=== PATIENT | male | born 1955 | race Two or more races ===

== ENCOUNTER 2023-09-19 02:02 | Inpatient (IN) | payer OTHER ==
[2023-09-19] VITALS (27 sets, daily range): BP systolic 96–160; BP diastolic 58–94; PULSE 56–76; RESP 15–21; TEMP 96–98.5; O2SAT 90–97
[~2023-09-19] VITALS: Ht 177.8 cm; Wt 88.0 kg
[~2023-09-19 02:02] MED LIST: PRED20TA2 PO
[2023-09-19] MEDS ORDERED: NITROGLYCERIN 50MG/250ML 250 ML IV ONE (02:15)
[2023-09-19] MEDS: FUROSEMIDE 100 MG/10ML VIAL IV ONE (02:29)
[2023-09-19 02:50] LABS: Albumin 3.7 g/dL (3.2-4.8); Alkaline Phosphatase 89 U/L (46-116); Anion Gap 4 (5-15); Aspartate Aminotransferase 11 U/L (13-40); BUN/Creatinine Ratio 15.1 (10.0-20.0); Blood Urea Nitrogen 19 mg/dL (9-23); Calcium 8.8 mg/dL (8.7-10.4); Carbon Dioxide 26 mmol/L (20-30); Chloride 111 mmol/L (98-107); Glucose 103 mg/dL (74-106); Potassium 3.8 mmol/L (3.5-5.1); Sodium 141 mmol/L (136-145)
[2023-09-19 02:51] LABS: Bilirubin, Total 0.5 mg/dL (0.2-1.0); Total Protein 6.4 g/dL (5.7-8.2)
[2023-09-19 03:02] LABS: Alanine Aminotransferase < 9 U/L (7-40)
[2023-09-19 03:04] LABS: Basophils # (auto) 0.1 10 ^3/uL (0-0.2); Basophils % (auto) 0.7 % (0.0-2.0); Eosinophils # (auto) 0.2 10 ^3/uL (0-0.8); Eosinophils % (auto) 2.6 % (0.0-7.0); Hematocrit 46.3 % (41.0-53.0); Hemoglobin 15.2 g/dL (13.5-17.5); Lymphocytes # (auto) 1.3 10 ^3/uL (0.4-5.4); Lymphocytes % (auto) 17.9 % (10.0-50.0); Mean Corpuscular Hemoglobin 30.4 pg (28.0-32.0); Mean Corpuscular Volume 92.2 fL (80.0-100.0); Monocytes # (auto) 0.6 10 ^3/uL (0-1.3); Monocytes % (auto) 8.7 % (0.0-12.0); Neutrophils # (auto) 5.2 10 ^3/uL (1.6-8.6); Neutrophils % (auto) 70.1 % (37.0-80.0); Red Blood Cells 5.02 10^6/uL (4.5-5.90); Red Cell Distribution Width 15.6 % (11.8-14.3); White Blood Cell 7.4 10^3/uL (4.4-10.8)
[2023-09-19 03:17] LABS: INR 1.19 (0.9-1.15); Partial Thromboplastin Time 25.7 SEC (24.5-34.5); Prothrombin Time 12.5 sec (9.3-11.8)
[2023-09-19 03:32] LABS: Urine Bacteria None Seen /hpf (None Seen)
[2023-09-19] MEDS: cefTRIAXone 1GM/50ML D5W 50 ML IV ONE (03:35)
[2023-09-19 03:37] LABS: Base Excess -2.1 mmol/L (-2.0-2.0)
[2023-09-19] MEDS: HYDROcodone-ACET 5/325MG TAB PO ONE (03:37)
[2023-09-19 03:44] LABS: Urine Blood Negative /uL (Negative); Urine Clarity Clear (Clear); Urine Color Colorless (Yellow); Urine Protein, UAD Negative (Negative); Urine Specific Gravity 1.009 (1.001-1.035); Urine Urobilinogen Normal (Negative); Urine WBC <1 /hpf (0 - 3); Urine pH 5.5 (5.0-9.0)
[2023-09-19] MEDS: AZITHROMYCIN 500MG/ 250ML 250 ML IV ONE (04:04)
[2023-09-19] MEDS: methylPREDNISolone SOD SUCC 125 MG/2 ML VL IV ONE (04:05)
[2023-09-19 04:58] LABS: COVID19 ANTIGEN SOFIA FIA NEGATIVE (NEGATIVE); Rapid Influenza A Negative (Negative); Rapid Influenza B Negative (Negative)
[2023-09-19] MEDS ORDERED: MORPHINE SULFATE INJ 2 MG/ml SYRG IV PRN (05:45)
[2023-09-19] MEDS ORDERED: ONDANSETRON HCL 4 MG/2 ML VIAL IV PRN ×2 (05:45)
[2023-09-19] MEDS ORDERED: NITROGLYCERIN 0.4 MG SL TAB SL PRN ×2 (05:45)
[2023-09-19] MEDS ORDERED: TEMAZEPAM 15 MG CAP PO PRN (05:45)
[2023-09-19] MEDS ORDERED: DOCUSATE SOD 100 MG CAP PO PRN (05:45)
[2023-09-19] MEDS: SODIUM CHLOR 0.9% PF (SALINE LOCK) 10ML VIAL/SYR IV SCH (06:25)
[2023-09-19] MEDS: ALBUTEROL SULF 2.5 MG/0.5ML(0.5%) NEB SOLN NEB SCH (06:27)
[2023-09-19] MEDS: IPRATROPIUM BROM 0.5 MG/2.5ML INH SOL NEB SCH (06:27)
[2023-09-19] MEDS ORDERED: MORPHINE SULFATE 4 MG/ML SYR/VIAL IV PRN (06:30)
[2023-09-19] MEDS: HYDROcodone-ACET 5/325MG TAB PO PRN (07:50)
[2023-09-19] MEDS: IOHEXOL 350 MG/ML 100ML IJ ONE (08:44)
[2023-09-19] MEDS: FAMOTIDINE (10MG/ML) 2ML VL IV SCH (09:47)
[2023-09-19] MEDS: AMIODARONE HCL 200 MG TAB PO SCH (09:47)
[2023-09-19] MEDS: FUROSEMIDE 40 MG/4 ML VIAL IV SCH (09:47)
[2023-09-19] MEDS: CARVEDILOL 12.5 MG TAB PO SCH (09:47)
[2023-09-19] MEDS: ENOXAPARIN SOD 40 MG/0.4 ML SYRINGE SC SCH (09:48)
[2023-09-19] MEDS: SACUBITRIL-VALSARTAN 24mg/26mg TAB PO SCH (09:48)
[2023-09-19] MEDS ORDERED: CARV25TA55 PO (11:35)
[2023-09-19] MEDS ORDERED: ATOR20TA50 PO (11:35)
[2023-09-19] MEDS ORDERED: FUR20T PO (11:35)
[2023-09-19] MEDS ORDERED: ALBU108A5 INH (11:35)
[2023-09-19] MEDS ORDERED: APIX5TAB PO (11:35)
[2023-09-19] MEDS ORDERED: SACU1TAB PO (11:35)
[2023-09-19] MEDS ORDERED: AMIO100T3 PO (11:35)
[2023-09-19] MEDS ORDERED: CHOL20007 PO (11:35)
[2023-09-19] MEDS: methylPREDNISolone SOD SUCC 125 MG/2 ML VL IV SCH (14:14)
[2023-09-19] MEDS: ATORVASTATIN 20 MG TAB PO SCH (22:03)
[2023-09-19] MEDS: BUDESONIDE (INHALATION) 0.5 MG/2 ML NEB NEB SCH (22:31)
[2023-09-20] VITALS (36 sets, daily range): BP systolic 84–110; BP diastolic 49–71; PULSE 58–77; RESP 11–22; TEMP 97–99; O2SAT 89–98
[2023-09-20] MEDS: cefTRIAXone 1GM/50ML D5W 50 ML IV SCH (02:52)
[2023-09-20] MEDS: AZITHROMYCIN 500MG/ 250ML 250 ML IV SCH (04:09)
[2023-09-20 05:41] LABS: Basophils # (auto) 0 10 ^3/uL (0-0.2); Basophils % (auto) 0.1 % (0.0-2.0); Eosinophils # (auto) 0 10 ^3/uL (0-0.8); Hematocrit 45.9 % (41.0-53.0); Hemoglobin 15.2 g/dL (13.5-17.5); Lymphocytes # (auto) 0.6 10 ^3/uL (0.4-5.4); Lymphocytes % (auto) 6.2 % (10.0-50.0); Mean Corpuscular Hemoglobin 30.4 pg (28.0-32.0); Mean Corpuscular Hgb Conc. 33.1 g/dL (32.0-36.0); Mean Corpuscular Volume 91.9 fL (80.0-100.0); Monocytes # (auto) 0.1 10 ^3/uL (0-1.3); Monocytes % (auto) 1.4 % (0.0-12.0); Neutrophils # (auto) 8.6 10 ^3/uL (1.6-8.6); Neutrophils % (auto) 92.3 % (37.0-80.0); Red Cell Distribution Width 15.5 % (11.8-14.3); White Blood Cell 9.3 10^3/uL (4.4-10.8)
[2023-09-20] MEDS ORDERED: methylPREDNISolone SOD SUCC 125 MG/2 ML VL IV SCH (06:00)
[2023-09-20 06:06] LABS: Albumin 3.7 g/dL (3.2-4.8); Alkaline Phosphatase 95 U/L (46-116); Anion Gap 8 (5-15); Aspartate Aminotransferase < 8 U/L (13-40); BUN/Creatinine Ratio 19.7 (10.0-20.0); Bilirubin, Total 0.4 mg/dL (0.2-1.0); Blood Urea Nitrogen 25 mg/dL (9-23); Calcium 9.2 mg/dL (8.7-10.4); Carbon Dioxide 24 mmol/L (20-30); Chloride 105 mmol/L (98-107); Glucose 144 mg/dL (74-106); Potassium 3.7 mmol/L (3.5-5.1); Sodium 137 mmol/L (136-145)
[2023-09-20 06:07] LABS: Total Protein 6.4 g/dL (5.7-8.2)
[2023-09-20 06:22] LABS: Alanine Aminotransferase < 9 U/L (7-40)
[2023-09-20] MEDS: HYDROcodone-ACET 10/325MG TAB PO PRN (16:20)
[2023-09-20] MEDS: ZOLPIDEM TARTRATE 5 MG TAB PO PRN (21:54)
[2023-09-21] VITALS (31 sets, daily range): BP systolic 78–117; BP diastolic 51–73; PULSE 63–86; RESP 12–29; TEMP 97.6–97.8; O2SAT 90–100
[2023-09-21] MEDS: POTASSIUM CHL 20 Meq TABLET PO ONE (10:12)
[2023-09-21 20:07] LABS: Alanine Aminotransferase 55 U/L (7-40); Alkaline Phosphatase 121 U/L (46-116); Anion Gap 5 (5-15); Aspartate Aminotransferase 53 U/L (13-40); Bilirubin, Total 0.7 mg/dL (0.2-1.0); Blood Urea Nitrogen 25 mg/dL (9-23); Calcium 9.7 mg/dL (8.5-10.1); Carbon Dioxide 27 mmol/L (20-30); Chloride 104 mmol/L (98-107); Glucose 151 mg/dL (74-106); Sodium 136 mmol/L (136-145); Total Protein 6.5 g/dL (5.7-8.2)
[2023-09-21] MEDS: SACUBITRIL-VALSARTAN 24mg/26mg TAB PO SCH (21:49)
[2023-09-21] MEDS: CARVEDILOL 12.5 MG TAB PO SCH (21:50)
[2023-09-22] VITALS (19 sets, daily range): BP systolic 108–121; BP diastolic 62–80; PULSE 62–92; RESP 14–24; TEMP 97.7–98.4; O2SAT 90–98
[2023-09-22 05:36] LABS: Basophils # (auto) 0 10 ^3/uL (0-0.2); Basophils % (auto) 0.1 % (0.0-2.0); Eosinophils # (auto) 0 10 ^3/uL (0-0.8); Hematocrit 45.5 % (41.0-53.0); Hemoglobin 15.3 g/dL (13.5-17.5); Lymphocytes # (auto) 0.4 10 ^3/uL (0.4-5.4); Lymphocytes % (auto) 3.4 % (10.0-50.0); Mean Corpuscular Hemoglobin 30.7 pg (28.0-32.0); Mean Corpuscular Hgb Conc. 33.6 g/dL (32.0-36.0); Mean Corpuscular Volume 91.5 fL (80.0-100.0); Monocytes # (auto) 0.4 10 ^3/uL (0-1.3); Neutrophils # (auto) 11.2 10 ^3/uL (1.6-8.6); Neutrophils % (auto) 93.5 % (37.0-80.0); Red Blood Cells 4.98 10^6/uL (4.5-5.90); Red Cell Distribution Width 15.5 % (11.8-14.3)
[2023-09-22 05:48] LABS: Calcium 9.4 mg/dL (8.7-10.4); Chloride 103 mmol/L (98-107); Potassium 4.1 mmol/L (3.5-5.1); Sodium 136 mmol/L (136-145)
[2023-09-22 05:49] LABS: Anion Gap 7 (5-15); Carbon Dioxide 26 mmol/L (20-30)
[2023-09-22 05:54] LABS: BUN/Creatinine Ratio 23.6 (10.0-20.0); Blood Urea Nitrogen 25 mg/dL (9-23); Glucose 145 mg/dL (74-106)
[2023-09-22 05:55] LABS: Magnesium 2.3 mg/dL (1.6-2.6)
[2023-09-23] VITALS (46 sets, daily range): BP systolic 99–130; BP diastolic 63–79; PULSE 57–79; RESP 12–27; TEMP 97.4–98.4; O2SAT 84–96
[2023-09-23 08:53] LABS: Base Excess 5.1 mmol/L (-2.0-2.0)
[2023-09-23 11:46] LABS: Basophils # (auto) 0 10 ^3/uL (0-0.2); Eosinophils # (auto) 0 10 ^3/uL (0-0.8); Hemoglobin 16.3 g/dL (13.5-17.5); Lymphocytes # (auto) 0.2 10 ^3/uL (0.4-5.4); Lymphocytes % (auto) 1.7 % (10.0-50.0); Mean Corpuscular Hemoglobin 30.3 pg (28.0-32.0); Mean Corpuscular Hgb Conc. 33.3 g/dL (32.0-36.0); Mean Corpuscular Volume 91.1 fL (80.0-100.0); Monocytes # (auto) 0.7 10 ^3/uL (0-1.3); Monocytes % (auto) 4.8 % (0.0-12.0); Neutrophils % (auto) 93.5 % (37.0-80.0); Red Blood Cells 5.39 10^6/uL (4.5-5.90); Red Cell Distribution Width 15.3 % (11.8-14.3); White Blood Cell 14.9 10^3/uL (4.4-10.8)
[2023-09-23 12:00] LABS: Chloride 103 mmol/L (98-107); Potassium 3.8 mmol/L (3.5-5.1); Sodium 135 mmol/L (136-145)
[2023-09-23 12:01] LABS: Anion Gap 5 (5-15); Carbon Dioxide 27 mmol/L (20-30)
[2023-09-23 12:02] LABS: Calcium 9.2 mg/dL (8.5-10.1)
[2023-09-23 12:07] LABS: BUN/Creatinine Ratio 20.6 (10.0-20.0); Blood Urea Nitrogen 22 mg/dL (9-23); Glucose 177 mg/dL (74-106)
[2023-09-23] MEDS: LORazepam 2MG/ML-1ML VIAL IV PRN (12:39)
[2023-09-24] VITALS (32 sets, daily range): BP systolic 105–156; BP diastolic 56–81; PULSE 54–89; RESP 12–26; TEMP 97.1–98.4; O2SAT 85–97
[2023-09-24 05:41] LABS: Basophils # (auto) 0 10 ^3/uL (0-0.2); Basophils % (auto) 0.1 % (0.0-2.0); Eosinophils # (auto) 0 10 ^3/uL (0-0.8); Hemoglobin 15.7 g/dL (13.5-17.5); Lymphocytes # (auto) 0.3 10 ^3/uL (0.4-5.4); Lymphocytes % (auto) 2.5 % (10.0-50.0); Mean Corpuscular Hemoglobin 30.6 pg (28.0-32.0); Mean Corpuscular Hgb Conc. 33.4 g/dL (32.0-36.0); Mean Corpuscular Volume 91.7 fL (80.0-100.0); Monocytes # (auto) 0.5 10 ^3/uL (0-1.3); Monocytes % (auto) 4.1 % (0.0-12.0); Neutrophils # (auto) 10.8 10 ^3/uL (1.6-8.6); Neutrophils % (auto) 93.3 % (37.0-80.0); Red Blood Cells 5.13 10^6/uL (4.5-5.90); Red Cell Distribution Width 14.8 % (11.8-14.3); White Blood Cell 11.5 10^3/uL (4.4-10.8)
[2023-09-24 05:48] LABS: Chloride 100 mmol/L (98-107); Potassium 4.2 mmol/L (3.5-5.1); Sodium 135 mmol/L (136-145)
[2023-09-24 05:49] LABS: Anion Gap 5 (5-15); Calcium 9.2 mg/dL (8.7-10.4); Carbon Dioxide 30 mmol/L (20-30)
[2023-09-24 05:54] LABS: Blood Urea Nitrogen 26 mg/dL (9-23); Glucose 126 mg/dL (74-106)
[2023-09-25] VITALS (33 sets, daily range): BP systolic 107–142; BP diastolic 54–80; PULSE 59–95; RESP 12–22; TEMP 97.3–98.6; O2SAT 86–94
[2023-09-25 08:30] LABS: Basophils # (auto) 0 10 ^3/uL (0-0.2); Basophils % (auto) 0.1 % (0.0-2.0); Eosinophils # (auto) 0 10 ^3/uL (0-0.8); Hematocrit 47.9 % (41.0-53.0); Hemoglobin 16.1 g/dL (13.5-17.5); Lymphocytes # (auto) 0.3 10 ^3/uL (0.4-5.4); Lymphocytes % (auto) 2.1 % (10.0-50.0); Mean Corpuscular Hemoglobin 30.5 pg (28.0-32.0); Mean Corpuscular Hgb Conc. 33.6 g/dL (32.0-36.0); Mean Corpuscular Volume 90.8 fL (80.0-100.0); Monocytes # (auto) 0.6 10 ^3/uL (0-1.3); Neutrophils # (auto) 14.3 10 ^3/uL (1.6-8.6); Neutrophils % (auto) 93.8 % (37.0-80.0); Red Blood Cells 5.27 10^6/uL (4.5-5.90); Red Cell Distribution Width 14.6 % (11.8-14.3); White Blood Cell 15.2 10^3/uL (4.4-10.8)
[2023-09-25 08:40] LABS: Chloride 99 mmol/L (98-107); Potassium 4.2 mmol/L (3.5-5.1); Sodium 133 mmol/L (136-145)
[2023-09-25 08:41] LABS: Anion Gap 3 (5-15); Carbon Dioxide 31 mmol/L (20-30)
[2023-09-25 08:42] LABS: Calcium 9.2 mg/dL (8.5-10.1)
[2023-09-25 08:46] LABS: Glucose 108 mg/dL (74-106)
[2023-09-25 08:47] LABS: BUN/Creatinine Ratio 22.7 (10.0-20.0); Blood Urea Nitrogen 25 mg/dL (9-23)
[2023-09-25] MEDS ORDERED: ACETYLCYSTEINE 20%(200MG/ML) SOL 4ML NEB SCH (12:00)
[2023-09-25] MEDS: methylPREDNISolone SOD SUCC 125 MG/2 ML VL IV SCH (14:52)
[2023-09-25] MEDS: ACETYLCYSTEINE 20%(200MG/ML) SOL 4ML NEB SCH (14:54)
[2023-09-26] VITALS (35 sets, daily range): BP systolic 109–148; BP diastolic 48–91; PULSE 61–160; RESP 13–33; TEMP 97.7–98.2; O2SAT 86–94
[2023-09-26 05:12] LABS: Basophils # (auto) 0 10 ^3/uL (0-0.2); Basophils % (auto) 0.1 % (0.0-2.0); Eosinophils # (auto) 0 10 ^3/uL (0-0.8); Lymphocytes # (auto) 0.3 10 ^3/uL (0.4-5.4); Lymphocytes % (auto) 2.1 % (10.0-50.0); Mean Corpuscular Hemoglobin 30.1 pg (28.0-32.0); Mean Corpuscular Hgb Conc. 33.3 g/dL (32.0-36.0); Mean Corpuscular Volume 90.5 fL (80.0-100.0); Monocytes # (auto) 0.5 10 ^3/uL (0-1.3); Monocytes % (auto) 3.7 % (0.0-12.0); Neutrophils # (auto) 12.6 10 ^3/uL (1.6-8.6); Neutrophils % (auto) 94.1 % (37.0-80.0); Red Blood Cells 5.31 10^6/uL (4.5-5.90); Red Cell Distribution Width 14.9 % (11.8-14.3); White Blood Cell 13.4 10^3/uL (4.4-10.8)
[2023-09-26 05:23] LABS: Chloride 99 mmol/L (98-107); Sodium 134 mmol/L (136-145)
[2023-09-26 05:24] LABS: Anion Gap 3 (5-15); Calcium 9.2 mg/dL (8.7-10.4); Carbon Dioxide 32 mmol/L (20-30)
[2023-09-26 05:29] LABS: BUN/Creatinine Ratio 25.3 (10.0-20.0); Blood Urea Nitrogen 25 mg/dL (9-23); Glucose 164 mg/dL (74-106)
[2023-09-26] MEDS: MICAFUNGIN SODIUM 100 MG in SODIUM CHL 0.9% 100 ML IV SCH (09:58)
[2023-09-26] MEDS: FUROSEMIDE 40 MG/4 ML VIAL IV SCH (22:02)
[2023-09-27] VITALS (27 sets, daily range): BP systolic 103–136; BP diastolic 43–85; PULSE 53–79; RESP 13–24; TEMP 97.6–98.9; O2SAT 70–96
[2023-09-27 05:55] LABS: Basophils # (auto) 0 10 ^3/uL (0-0.2); Basophils % (auto) 0.3 % (0.0-2.0); Eosinophils # (auto) 0 10 ^3/uL (0-0.8); Hematocrit 48.2 % (41.0-53.0); Hemoglobin 16.3 g/dL (13.5-17.5); Lymphocytes # (auto) 0.3 10 ^3/uL (0.4-5.4); Lymphocytes % (auto) 2.6 % (10.0-50.0); Mean Corpuscular Hemoglobin 30.5 pg (28.0-32.0); Mean Corpuscular Hgb Conc. 33.8 g/dL (32.0-36.0); Mean Corpuscular Volume 90.3 fL (80.0-100.0); Monocytes # (auto) 0.8 10 ^3/uL (0-1.3); Monocytes % (auto) 5.9 % (0.0-12.0); Neutrophils # (auto) 11.7 10 ^3/uL (1.6-8.6); Neutrophils % (auto) 91.2 % (37.0-80.0); Red Blood Cells 5.34 10^6/uL (4.5-5.90); Red Cell Distribution Width 14.7 % (11.8-14.3); White Blood Cell 12.9 10^3/uL (4.4-10.8)
[2023-09-27 06:13] LABS: Anion Gap 6 (5-15); Carbon Dioxide 32 mmol/L (20-30); Chloride 99 mmol/L (98-107); Potassium 3.8 mmol/L (3.5-5.1); Sodium 137 mmol/L (136-145)
[2023-09-27 06:18] LABS: Glucose 114 mg/dL (74-106)
[2023-09-27 06:19] LABS: BUN/Creatinine Ratio 29.6 (10.0-20.0); Blood Urea Nitrogen 29 mg/dL (9-23)
[2023-09-27 13:07] LABS: QuantiFERON-TB Gold Plus Negative (Negative)
[2023-09-28] VITALS (27 sets, daily range): BP systolic 96–126; BP diastolic 62–79; PULSE 62–96; RESP 14–24; TEMP 97.6–97.9; O2SAT 69–96
[2023-09-28 05:45] LABS: Basophils # (auto) 0 10 ^3/uL (0-0.2); Eosinophils # (auto) 0 10 ^3/uL (0-0.8); Hemoglobin 16.8 g/dL (13.5-17.5); Lymphocytes # (auto) 0.5 10 ^3/uL (0.4-5.4); Lymphocytes % (auto) 2.6 % (10.0-50.0); Mean Corpuscular Hemoglobin 30.6 pg (28.0-32.0); Mean Corpuscular Hgb Conc. 33.6 g/dL (32.0-36.0); Monocytes % (auto) 5.7 % (0.0-12.0); Neutrophils # (auto) 15.6 10 ^3/uL (1.6-8.6); Neutrophils % (auto) 91.7 % (37.0-80.0); Red Blood Cells 5.49 10^6/uL (4.5-5.90); Red Cell Distribution Width 14.7 % (11.8-14.3); White Blood Cell 17.1 10^3/uL (4.4-10.8)
[2023-09-28 05:54] LABS: Chloride 99 mmol/L (98-107); Potassium 3.9 mmol/L (3.5-5.1); Sodium 138 mmol/L (136-145)
[2023-09-28 05:55] LABS: Anion Gap 3 (5-15); Carbon Dioxide 36 mmol/L (20-30)
[2023-09-28 05:56] LABS: Calcium 9.3 mg/dL (8.7-10.4)
[2023-09-28 06:01] LABS: Glucose 118 mg/dL (74-106)
[2023-09-28 06:09] LABS: Blood Urea Nitrogen 33 mg/dL (9-23)
[2023-09-28 07:36] LABS: BUN/Creatinine Ratio 26.6 (10.0-20.0)
[2023-09-28] MEDS: PIPERACILLIN-TAZOB 3.375GM 100 ML IV SCH (22:27)
[2023-09-29] VITALS (29 sets, daily range): BP systolic 85–127; BP diastolic 54–73; PULSE 70–87; RESP 16–24; TEMP 97.5–98.3; O2SAT 22–98
[2023-09-29 07:22] LABS: Basophils # (auto) 0 10 ^3/uL (0-0.2); Basophils % (auto) 0.1 % (0.0-2.0); Eosinophils # (auto) 0.1 10 ^3/uL (0-0.8); Eosinophils % (auto) 0.3 % (0.0-7.0); Hematocrit 51.1 % (41.0-53.0); Lymphocytes # (auto) 0.3 10 ^3/uL (0.4-5.4); Mean Corpuscular Hgb Conc. 33.3 g/dL (32.0-36.0); Mean Corpuscular Volume 90.2 fL (80.0-100.0); Monocytes # (auto) 0.7 10 ^3/uL (0-1.3); Monocytes % (auto) 4.2 % (0.0-12.0); Neutrophils # (auto) 16.2 10 ^3/uL (1.6-8.6); Neutrophils % (auto) 93.4 % (37.0-80.0); Nucleated Red Blood Cells % 0.1 %; Red Blood Cells 5.67 10^6/uL (4.5-5.90); Red Cell Distribution Width 14.9 % (11.8-14.3); White Blood Cell 17.3 10^3/uL (4.4-10.8)
[2023-09-29 07:41] LABS: Alanine Aminotransferase 25 U/L (7-40); Albumin 3.6 g/dL (3.2-4.8); Alkaline Phosphatase 101 U/L (46-116); Anion Gap 3 (5-15); Aspartate Aminotransferase 21 U/L (13-40); BUN/Creatinine Ratio 27.4 (10.0-20.0); Blood Urea Nitrogen 34 mg/dL (9-23); Calcium 9.3 mg/dL (8.7-10.4); Carbon Dioxide 34 mmol/L (20-30); Chloride 101 mmol/L (98-107); Glucose 126 mg/dL (74-106); Magnesium 2.3 mg/dL (1.6-2.6); Sodium 138 mmol/L (136-145)
[2023-09-29 07:42] LABS: Bilirubin, Total 0.7 mg/dL (0.2-1.0); Total Protein 5.8 g/dL (5.7-8.2)
[2023-09-29 12:06] LABS: Aspergillus flavus Negative (Neg:<1:1); Aspergillus fumigatus Negative (Neg:<1:1); Aspergillus niger Negative (Neg:<1:1)
[2023-09-29] MEDS: methylPREDNISolone SOD SUCC 125 MG/2 ML VL IV SCH (14:00)
[2023-09-29] MEDS: HYDROcodone-ACET 10/325MG TAB PO PRN (18:11)
[2023-09-30] VITALS (37 sets, daily range): BP systolic 87–123; BP diastolic 48–81; PULSE 66–94; RESP 15–34; TEMP 97.4–98.2; O2SAT 8–95
[2023-09-30] MEDS: methylPREDNISolone SOD SUCC 125 MG/2 ML VL IV SCH (15:12)
[2023-09-30] MEDS: FUROSEMIDE 40 MG TAB PO SCH (18:58)
[2023-10-01] VITALS (58 sets, daily range): BP systolic 72–183; BP diastolic 46–120; PULSE 59–99; RESP 12–24; TEMP 97.6–99; O2SAT 86–100
[2023-10-01] MEDS: ROCURONIUM 10MG/ML 10ML VIAL IV ONE ×2 (16:20)
[2023-10-01] MEDS: ETOMIDATE (2MG/ML) 20ML VIAL IV ONE (16:20)
[2023-10-01] MEDS: MIDAZOLAM DRIP 50 mg/50mL 50 ML IV SCH (16:30)
[2023-10-01] MEDS: fentaNYL Drip 2500mCg/250mlNS 250 ML IV SCH (16:30)
[2023-10-01] MEDS: MIDAZOLAM DRIP 50 mg/50mL 50 ML IV ONE (16:30)
[2023-10-01] MEDS: fentaNYL Drip 2500mCg/250mlNS 250 ML IV ONE (16:30)
[2023-10-01] MEDS: PROPOFOL 100 ML IV ONE (16:47)
[2023-10-01] MEDS: PROPOFOL 100 ML IV SCH (17:00)
[2023-10-01] MEDS: NOREPINEPHRINE 8 MG/250ML KIT 250 ML IV SCH (18:13)
[2023-10-01] MEDS: NOREPINEPHRINE 8 MG/250ML KIT 250 ML IV ONE (18:14)
[2023-10-01 19:17] LABS: Base Excess 5.2 mmol/L (-2.0-2.0)
[2023-10-01 22:06] LABS: Coccidioides CF Antibody <1:2 (<1:2)
[2023-10-02] VITALS (108 sets, daily range): BP systolic 85–149; BP diastolic 54–89; PULSE 52–81; RESP 7–26; TEMP 98.4–99.9; O2SAT 90–100
[2023-10-02 04:39] LABS: Basophils # (auto) 0 10 ^3/uL (0-0.2); Basophils % (auto) 0.2 % (0.0-2.0); Eosinophils # (auto) 0 10 ^3/uL (0-0.8); Hematocrit 49.1 % (41.0-53.0); Hemoglobin 16.5 g/dL (13.5-17.5); Lymphocytes # (auto) 0.4 10 ^3/uL (0.4-5.4); Mean Corpuscular Hemoglobin 30.6 pg (28.0-32.0); Mean Corpuscular Hgb Conc. 33.6 g/dL (32.0-36.0); Mean Corpuscular Volume 91.1 fL (80.0-100.0); Monocytes # (auto) 0.6 10 ^3/uL (0-1.3); Monocytes % (auto) 2.9 % (0.0-12.0); Neutrophils # (auto) 19.1 10 ^3/uL (1.6-8.6); Neutrophils % (auto) 94.9 % (37.0-80.0); Nucleated Red Blood Cells % 0.1 %; Red Blood Cells 5.39 10^6/uL (4.5-5.90); Red Cell Distribution Width 14.8 % (11.8-14.3); White Blood Cell 20.2 10^3/uL (4.4-10.8)
[2023-10-02 04:48] LABS: Chloride 101 mmol/L (98-107); Potassium 4.2 mmol/L (3.5-5.1); Sodium 138 mmol/L (136-145)
[2023-10-02 04:50] LABS: Anion Gap 6 (5-15); Calcium 9.1 mg/dL (8.5-10.1); Carbon Dioxide 31 mmol/L (20-30)
[2023-10-02 04:55] LABS: BUN/Creatinine Ratio 30.5 (10.0-20.0); Blood Urea Nitrogen 39 mg/dL (9-23); Glucose 139 mg/dL (74-106)
[2023-10-02 07:35] LABS: Base Excess 5.3 mmol/L (-2.0-2.0)
[2023-10-02] MEDS: ENOXAPARIN SOD 40 MG/0.4 ML SYRINGE SC SCH (09:45)
[2023-10-02] MEDS ORDERED: VANCOMYCIN PER PHARMACY 0 MG IV SCH (10:30)
[2023-10-02] MEDS: VANCOMYCIN 1GM/200ML 200 ML IV ONE (12:24)
[2023-10-02] MEDS: MEROPENEM 1GM IVPB 50 ML IV SCH (23:04)
[2023-10-03] VITALS (107 sets, daily range): BP systolic 83–115; BP diastolic 40–86; PULSE 59–77; RESP 7–27; TEMP 97.7–100; O2SAT 87–99
[2023-10-03] MEDS: VANCOMYCIN 1GM/200ML 200 ML IV SCH (02:26)
[2023-10-03 04:07] LABS: Basophils # (auto) 0 10 ^3/uL (0-0.2); Basophils % (auto) 0.2 % (0.0-2.0); Eosinophils # (auto) 0 10 ^3/uL (0-0.8); Hemoglobin 15.8 g/dL (13.5-17.5); Lymphocytes # (auto) 0.5 10 ^3/uL (0.4-5.4); Lymphocytes % (auto) 2.2 % (10.0-50.0); Mean Corpuscular Hemoglobin 30.1 pg (28.0-32.0); Mean Corpuscular Hgb Conc. 32.9 g/dL (32.0-36.0); Mean Corpuscular Volume 91.4 fL (80.0-100.0); Monocytes # (auto) 1.1 10 ^3/uL (0-1.3); Neutrophils # (auto) 21.3 10 ^3/uL (1.6-8.6); Neutrophils % (auto) 92.6 % (37.0-80.0); Nucleated Red Blood Cells % 0.1 %; Red Blood Cells 5.25 10^6/uL (4.5-5.90); Red Cell Distribution Width 14.8 % (11.8-14.3)
[2023-10-03 04:20] LABS: Chloride 105 mmol/L (98-107); Sodium 140 mmol/L (136-145)
[2023-10-03 04:21] LABS: Anion Gap 4 (5-15); Calcium 8.8 mg/dL (8.7-10.4); Carbon Dioxide 31 mmol/L (20-30)
[2023-10-03 04:26] LABS: BUN/Creatinine Ratio 34.8 (10.0-20.0); Blood Urea Nitrogen 40 mg/dL (9-23); Glucose 116 mg/dL (74-106)
[2023-10-03 07:28] LABS: Base Excess 2.9 mmol/L (-2.0-2.0)
[2023-10-03 11:00] LABS: Base Excess 5.1 mmol/L (-2.0-2.0)
[2023-10-03] MEDS: ENOXAPARIN SOD 100 MG/1 ML SYRINGE SC SCH (11:26)
[2023-10-03] MEDS ORDERED: EPINEPHrine HCL 1 MG/1 ML AMP ONE (11:50)
[2023-10-03] MEDS ORDERED: GLYCOPYRROLATE 0.2 MG/ML 1ML VIAL ONE (11:50)
[2023-10-03] MEDS ORDERED: LIDOCAINE 2% JELLY 11ml (GLYDO) ONE (11:51)
[2023-10-03] MEDS ORDERED: LIDOCAINE 2%HCL (LOCAL ANESTH.) INJ 20ML MDV ONE (11:51)
[2023-10-03] MEDS ORDERED: NALOXONE HCL 0.4 MG/ML VIAL ONE (11:52)
[2023-10-03] MEDS ORDERED: FLUMAZENIL 0.1 MG/ML INJ 10ML MDV IV ONE (11:52)
[2023-10-03] MEDS: FUROSEMIDE 20 MG/2 ML VIAL IV ONE (14:54)
[2023-10-03] MEDS: FUROSEMIDE 40 MG/4 ML VIAL IV ONE (16:47)
[2023-10-03] MEDS ORDERED: FUROSEMIDE 40 MG/4 ML VIAL IV SCH ×2 (18:00→22:00)
[2023-10-03] MEDS ORDERED: FUROSEMIDE 40 MG TAB PO SCH (18:00)
[2023-10-03] MEDS: ENOXAPARIN SOD 80 MG/0.8ML SYRINGE SC SCH (22:13)
[2023-10-04] VITALS (102 sets, daily range): BP systolic 77–142; BP diastolic 47–80; PULSE 62–77; RESP 18–31; TEMP 97.9–99.1; O2SAT 85–97
[2023-10-04 04:25] LABS: Basophils # (auto) 0 10 ^3/uL (0-0.2); Basophils % (auto) 0.1 % (0.0-2.0); Eosinophils # (auto) 0 10 ^3/uL (0-0.8); Hematocrit 48.3 % (41.0-53.0); Hemoglobin 16.1 g/dL (13.5-17.5); Lymphocytes # (auto) 0.3 10 ^3/uL (0.4-5.4); Lymphocytes % (auto) 1.6 % (10.0-50.0); Mean Corpuscular Hemoglobin 30.7 pg (28.0-32.0); Mean Corpuscular Hgb Conc. 33.4 g/dL (32.0-36.0); Monocytes # (auto) 0.8 10 ^3/uL (0-1.3); Monocytes % (auto) 4.1 % (0.0-12.0); Neutrophils # (auto) 19.7 10 ^3/uL (1.6-8.6); Neutrophils % (auto) 94.2 % (37.0-80.0); Red Blood Cells 5.25 10^6/uL (4.5-5.90); Red Cell Distribution Width 14.8 % (11.8-14.3); White Blood Cell 20.8 10^3/uL (4.4-10.8)
[2023-10-04 04:33] LABS: Anion Gap 4 (5-15); Carbon Dioxide 34 mmol/L (20-30); Chloride 107 mmol/L (98-107); Potassium 4.1 mmol/L (3.5-5.1)
[2023-10-04 04:39] LABS: BUN/Creatinine Ratio 40.8 (10.0-20.0); Blood Urea Nitrogen 49 mg/dL (9-23); Glucose 137 mg/dL (74-106)
[2023-10-04 04:40] LABS: Sodium 145 mmol/L (136-145)
[2023-10-04 09:26] LABS: Base Excess 1.1 mmol/L (-2.0-2.0)
[2023-10-04] MEDS: FUROSEMIDE 40 MG/4 ML VIAL IV SCH ×2 (09:51→22:10)
[2023-10-05] VITALS (106 sets, daily range): BP systolic 87–138; BP diastolic 59–85; PULSE 62–84; RESP 15–33; TEMP 98.2–99.3; O2SAT 82–100
[2023-10-05 00:18] LABS: Base Excess 3.6 mmol/L (-2.0-2.0)
[2023-10-05 04:29] LABS: Basophils # (auto) 0 10 ^3/uL (0-0.2); Basophils % (auto) 0.2 % (0.0-2.0); Eosinophils # (auto) 0 10 ^3/uL (0-0.8); Hematocrit 49.2 % (41.0-53.0); Hemoglobin 16.4 g/dL (13.5-17.5); Lymphocytes # (auto) 0.4 10 ^3/uL (0.4-5.4); Lymphocytes % (auto) 2.4 % (10.0-50.0); Mean Corpuscular Hemoglobin 30.7 pg (28.0-32.0); Mean Corpuscular Hgb Conc. 33.3 g/dL (32.0-36.0); Mean Corpuscular Volume 92.2 fL (80.0-100.0); Monocytes # (auto) 0.6 10 ^3/uL (0-1.3); Monocytes % (auto) 3.7 % (0.0-12.0); Neutrophils # (auto) 16.2 10 ^3/uL (1.6-8.6); Neutrophils % (auto) 93.7 % (37.0-80.0); Red Blood Cells 5.33 10^6/uL (4.5-5.90); Red Cell Distribution Width 14.8 % (11.8-14.3); White Blood Cell 17.3 10^3/uL (4.4-10.8)
[2023-10-05 04:36] LABS: Anion Gap 5 (5-15); Carbon Dioxide 34 mmol/L (20-30); Chloride 110 mmol/L (98-107); Potassium 3.7 mmol/L (3.5-5.1); Sodium 149 mmol/L (136-145)
[2023-10-05 04:42] LABS: BUN/Creatinine Ratio 41.3 (10.0-20.0); Blood Urea Nitrogen 43 mg/dL (9-23); Glucose 134 mg/dL (74-106)
[2023-10-05 06:12] LABS: Base Excess 5.5 mmol/L (-2.0-2.0)
[2023-10-05] MEDS: Jevity 1.2 Cal/Fiber 1 Liter GT SCH (16:08)
[2023-10-05] MEDS: Pro-Stat SF 30ml Vanilla GT SCH (21:44)
[2023-10-06] VITALS (113 sets, daily range): BP systolic 81–118; BP diastolic 54–76; PULSE 62–80; RESP 9–26; TEMP 98.1–99; O2SAT 90–100
[2023-10-06 04:01] LABS: Anion Gap 5 (5-15); Calcium 8.9 mg/dL (8.7-10.4); Carbon Dioxide 32 mmol/L (20-30); Chloride 115 mmol/L (98-107); Potassium 3.5 mmol/L (3.5-5.1); Sodium 152 mmol/L (136-145)
[2023-10-06 04:06] LABS: Glucose 138 mg/dL (74-106)
[2023-10-06 04:07] LABS: Blood Urea Nitrogen 44 mg/dL (9-23)
[2023-10-06 04:15] LABS: Basophils # (auto) 0 10 ^3/uL (0-0.2); Basophils % (auto) 0.1 % (0.0-2.0); Eosinophils # (auto) 0 10 ^3/uL (0-0.8); Eosinophils % (auto) 0.1 % (0.0-7.0); Hematocrit 48.5 % (41.0-53.0); Hemoglobin 16.2 g/dL (13.5-17.5); Lymphocytes # (auto) 0.4 10 ^3/uL (0.4-5.4); Lymphocytes % (auto) 2.8 % (10.0-50.0); Mean Corpuscular Hemoglobin 30.4 pg (28.0-32.0); Mean Corpuscular Hgb Conc. 33.3 g/dL (32.0-36.0); Mean Corpuscular Volume 91.2 fL (80.0-100.0); Monocytes # (auto) 0.5 10 ^3/uL (0-1.3); Monocytes % (auto) 3.5 % (0.0-12.0); Neutrophils # (auto) 14.5 10 ^3/uL (1.6-8.6); Neutrophils % (auto) 93.5 % (37.0-80.0); Red Blood Cells 5.32 10^6/uL (4.5-5.90); Red Cell Distribution Width 14.8 % (11.8-14.3); White Blood Cell 15.5 10^3/uL (4.4-10.8)
[2023-10-06 07:09] LABS: Base Excess 6.7 mmol/L (-2.0-2.0)
[2023-10-06] MEDS: LACTULOSE 20Gm/30ML SOLN PO PRN (10:16)
[2023-10-06] MEDS: FREE WATER GT SCH (10:17)
[2023-10-06] MEDS: MEROPENEM 1GM IVPB 50 ML IV SCH (15:04)
[2023-10-06] MEDS: ENOXAPARIN SOD 80 MG/0.8ML SYRINGE SC SCH (21:59)
[2023-10-07] VITALS (104 sets, daily range): BP systolic 78–182; BP diastolic 44–108; PULSE 65–98; RESP 11–25; TEMP 97.9–99.1; O2SAT 87–100
[2023-10-07 04:02] LABS: Basophils # (auto) 0 10 ^3/uL (0-0.2); Basophils % (auto) 0.1 % (0.0-2.0); Eosinophils # (auto) 0 10 ^3/uL (0-0.8); Eosinophils % (auto) 0.1 % (0.0-7.0); Hemoglobin 15.7 g/dL (13.5-17.5); Lymphocytes # (auto) 0.4 10 ^3/uL (0.4-5.4); Lymphocytes % (auto) 1.9 % (10.0-50.0); Mean Corpuscular Hgb Conc. 32.8 g/dL (32.0-36.0); Mean Corpuscular Volume 91.6 fL (80.0-100.0); Monocytes # (auto) 0.5 10 ^3/uL (0-1.3); Monocytes % (auto) 2.7 % (0.0-12.0); Neutrophils # (auto) 18.1 10 ^3/uL (1.6-8.6); Neutrophils % (auto) 95.2 % (37.0-80.0); Red Blood Cells 5.24 10^6/uL (4.5-5.90); Red Cell Distribution Width 15.3 % (11.8-14.3)
[2023-10-07 04:06] LABS: Anion Gap 4 (5-15); Carbon Dioxide 36 mmol/L (20-30); Chloride 116 mmol/L (98-107); Potassium 3.2 mmol/L (3.5-5.1); Sodium 156 mmol/L (136-145)
[2023-10-07 04:07] LABS: Calcium 8.9 mg/dL (8.7-10.4)
[2023-10-07 04:12] LABS: BUN/Creatinine Ratio 55.9 (10.0-20.0); Glucose 154 mg/dL (74-106)
[2023-10-07 04:16] LABS: INR 1.11 (0.9-1.15); Partial Thromboplastin Time 27.9 SEC (24.5-34.5); Prothrombin Time 11.7 sec (9.3-11.8)
[2023-10-07 04:23] LABS: Blood Urea Nitrogen 62 mg/dL (9-23)
[2023-10-07 07:18] LABS: Base Excess 6.9 mmol/L (-2.0-2.0)
[2023-10-07] MEDS: POTASSIUM CHL 20MEQ/100ML 100 ML IV ONE (07:59)
[2023-10-07] MEDS: METOCLOPRAMIDE HCL 5MG/ml INJ 2ml VIAL IV SCH (14:35)
[2023-10-07 19:13] LABS: Base Excess 2.5 mmol/L (-2.0-2.0)
[2023-10-07] MEDS: DOCUSATE ORAL LIQUID 100 MG/10 ML UD GT SCH (21:42)
[2023-10-08] VITALS (109 sets, daily range): BP systolic 81–120; BP diastolic 45–80; PULSE 62–81; RESP 9–25; TEMP 98.4–99; O2SAT 86–99
[2023-10-08 04:02] LABS: Hematocrit 47.5 % (41.0-53.0); Hemoglobin 15.4 g/dL (13.5-17.5); Mean Corpuscular Hemoglobin 30.1 pg (28.0-32.0); Mean Corpuscular Hgb Conc. 32.4 g/dL (32.0-36.0); Mean Corpuscular Volume 93.1 fL (80.0-100.0); Red Blood Cells 5.11 10^6/uL (4.5-5.90); Red Cell Distribution Width 15.2 % (11.8-14.3); White Blood Cell 21.4 10^3/uL (4.4-10.8)
[2023-10-08 04:19] LABS: Basophils % (manual) 0 (0.0-2.0); Blast Cells 0; Calcium 8.9 mg/dL (8.7-10.4); Chloride 117 mmol/L (98-107); Eosinophils % (manual) 0 (0-7); Metamyelocytes % 0; Myelocytes % 0; Potassium 4.3 mmol/L (3.5-5.1); Promyelocytes % 0; Reactive Lymphocytes 0; Sodium 156 mmol/L (136-145)
[2023-10-08 04:20] LABS: Anion Gap 5 (5-15); Carbon Dioxide 34 mmol/L (20-30)
[2023-10-08 04:25] LABS: Blood Urea Nitrogen 62 mg/dL (9-23); Glucose 128 mg/dL (74-106)
[2023-10-08 04:33] LABS: Base Excess 6.2 mmol/L (-2.0-2.0)
[2023-10-08 04:55] LABS: Band Neutrophils % (manual) 3; Lymphocytes % (manual) 3 (10.0-50.0); Monocytes % (manual) 4 (0-12); Platelet Estimate Decreased
[2023-10-08] MEDS: LACTULOSE 20Gm/30ML SOLN NG ONE (10:15)
[2023-10-08] MEDS: D5W 5% 1,000 ML IV SCH (10:59)
[2023-10-09] VITALS (106 sets, daily range): BP systolic 83–108; BP diastolic 52–69; PULSE 61–83; RESP 9–31; TEMP 97.9–99.3; O2SAT 88–100
[2023-10-09 06:45] LABS: Base Excess 4.2 mmol/L (-2.0-2.0)
[2023-10-09 10:49] LABS: Hematocrit 44.8 % (41.0-53.0); Hemoglobin 14.5 g/dL (13.5-17.5); Mean Corpuscular Hemoglobin 30.1 pg (28.0-32.0); Mean Corpuscular Hgb Conc. 32.3 g/dL (32.0-36.0); Mean Corpuscular Volume 93.1 fL (80.0-100.0); Red Blood Cells 4.82 10^6/uL (4.5-5.90); Red Cell Distribution Width 14.9 % (11.8-14.3); White Blood Cell 18.6 10^3/uL (4.4-10.8)
[2023-10-09 10:58] LABS: Basophils % (manual) 0 (0.0-2.0); Blast Cells 0; Eosinophils % (manual) 0 (0-7); Metamyelocytes % 0; Myelocytes % 0; Promyelocytes % 0
[2023-10-09 11:06] LABS: Alanine Aminotransferase 40 U/L (7-40); Albumin 3.3 g/dL (3.2-4.8); Alkaline Phosphatase 120 U/L (46-116); Anion Gap 1 (5-15); Aspartate Aminotransferase 63 U/L (13-40); BUN/Creatinine Ratio 55.9 (10.0-20.0); Blood Urea Nitrogen 57 mg/dL (9-23); Calcium 8.8 mg/dL (8.5-10.1); Carbon Dioxide 36 mmol/L (20-30); Chloride 116 mmol/L (98-107); Glucose 163 mg/dL (74-106); Potassium 4.5 mmol/L (3.5-5.1); Sodium 153 mmol/L (136-145)
[2023-10-09 11:07] LABS: Bilirubin, Total 0.7 mg/dL (0.2-1.0); Total Protein 5.2 g/dL (5.7-8.2)
[2023-10-09 11:23] LABS: Band Neutrophils % (manual) 1; Lymphocytes % (manual) 2 (10.0-50.0); Monocytes % (manual) 6 (0-12); Platelet Estimate Decreased; Reactive Lymphocytes 1
[2023-10-10] VITALS (110 sets, daily range): BP systolic 79–138; BP diastolic 48–88; PULSE 63–94; RESP 11–25; TEMP 98.6–99.5; O2SAT 89–100
[2023-10-10 07:40] LABS: Base Excess 8.1 mmol/L (-2.0-2.0)
[2023-10-10 08:12] LABS: Basophils # (auto) 0.1 10 ^3/uL (0-0.2); Basophils % (auto) 0.4 % (0.0-2.0); Eosinophils # (auto) 0 10 ^3/uL (0-0.8); Eosinophils % (auto) 0.1 % (0.0-7.0); Hematocrit 43.5 % (41.0-53.0); Lymphocytes # (auto) 0.2 10 ^3/uL (0.4-5.4); Lymphocytes % (auto) 1.4 % (10.0-50.0); Mean Corpuscular Hemoglobin 29.9 pg (28.0-32.0); Mean Corpuscular Hgb Conc. 32.3 g/dL (32.0-36.0); Mean Corpuscular Volume 92.7 fL (80.0-100.0); Monocytes # (auto) 0.3 10 ^3/uL (0-1.3); Monocytes % (auto) 1.9 % (0.0-12.0); Neutrophils # (auto) 17.3 10 ^3/uL (1.6-8.6); Neutrophils % (auto) 96.2 % (37.0-80.0); Red Blood Cells 4.69 10^6/uL (4.5-5.90); Red Cell Distribution Width 14.4 % (11.8-14.3)
[2023-10-10 08:26] LABS: Alanine Aminotransferase 41 U/L (7-40); Albumin 3.1 g/dL (3.2-4.8); Alkaline Phosphatase 128 U/L (46-116); Aspartate Aminotransferase 59 U/L (13-40); BUN/Creatinine Ratio 48.9 (10.0-20.0); Bilirubin, Total 0.7 mg/dL (0.2-1.0); Calcium 8.6 mg/dL (8.5-10.1); Glucose 146 mg/dL (74-106)
[2023-10-10 08:30] LABS: Blood Urea Nitrogen 45 mg/dL (9-23)
[2023-10-10 08:38] LABS: Chloride 115 mmol/L (98-107); Potassium 4.8 mmol/L (3.5-5.1); Sodium 150 mmol/L (136-145)
[2023-10-10 08:40] LABS: Carbon Dioxide 39 mmol/L (20-30)
[2023-10-10 08:43] LABS: Anion Gap -4 (5-15)
[2023-10-10] MEDS: FUROSEMIDE 40 MG/4 ML VIAL IV SCH (10:00)
[2023-10-10] MEDS: NOREPINEPHRINE 8 MG/250ML KIT 250 ML IV SCH (10:47)
[2023-10-11] VITALS (103 sets, daily range): BP systolic 86–144; BP diastolic 54–89; PULSE 60–99; RESP 10–24; TEMP 89.1–99.5; O2SAT 90–100
[2023-10-11] MEDS: fentaNYL Drip 2500mCg/250mlNS 250 ML IV SCH (01:01)
[2023-10-11 04:34] LABS: Basophils # (auto) 0 10 ^3/uL (0-0.2); Basophils % (auto) 0.1 % (0.0-2.0); Eosinophils # (auto) 0 10 ^3/uL (0-0.8); Eosinophils % (auto) 0.1 % (0.0-7.0); Hematocrit 41.4 % (41.0-53.0); Hemoglobin 13.9 g/dL (13.5-17.5); Lymphocytes # (auto) 0.2 10 ^3/uL (0.4-5.4); Lymphocytes % (auto) 1.6 % (10.0-50.0); Mean Corpuscular Hemoglobin 30.7 pg (28.0-32.0); Mean Corpuscular Hgb Conc. 33.5 g/dL (32.0-36.0); Mean Corpuscular Volume 91.8 fL (80.0-100.0); Monocytes # (auto) 0.3 10 ^3/uL (0-1.3); Monocytes % (auto) 2.1 % (0.0-12.0); Neutrophils # (auto) 14.7 10 ^3/uL (1.6-8.6); Neutrophils % (auto) 96.1 % (37.0-80.0); Red Blood Cells 4.51 10^6/uL (4.5-5.90); Red Cell Distribution Width 14.3 % (11.8-14.3); White Blood Cell 15.2 10^3/uL (4.4-10.8)
[2023-10-11 05:05] LABS: Chloride 110 mmol/L (98-107); Potassium 4.7 mmol/L (3.5-5.1); Sodium 147 mmol/L (136-145)
[2023-10-11 05:07] LABS: Carbon Dioxide 38 mmol/L (20-30)
[2023-10-11 05:09] LABS: Calcium 8.5 mg/dL (8.5-10.1)
[2023-10-11 05:14] LABS: BUN/Creatinine Ratio 49.4 (10.0-20.0); Blood Urea Nitrogen 44 mg/dL (9-23); Glucose 140 mg/dL (74-106)
[2023-10-11 05:25] LABS: Anion Gap -1 (5-15)
[2023-10-11 08:20] LABS: Base Excess 3.6 mmol/L (-2.0-2.0)
[2023-10-12] VITALS (104 sets, daily range): BP systolic 85–156; BP diastolic 46–90; PULSE 59–95; RESP 11–27; TEMP 96.5–98.1; O2SAT 87–99
[2023-10-12 04:18] LABS: Basophils # (auto) 0 10 ^3/uL (0-0.2); Basophils % (auto) 0.1 % (0.0-2.0); Eosinophils # (auto) 0 10 ^3/uL (0-0.8); Eosinophils % (auto) 0.1 % (0.0-7.0); Hematocrit 38.9 % (41.0-53.0); Hemoglobin 13.1 g/dL (13.5-17.5); Lymphocytes # (auto) 0.2 10 ^3/uL (0.4-5.4); Lymphocytes % (auto) 2.1 % (10.0-50.0); Mean Corpuscular Hemoglobin 30.7 pg (28.0-32.0); Mean Corpuscular Hgb Conc. 33.7 g/dL (32.0-36.0); Mean Corpuscular Volume 91.2 fL (80.0-100.0); Monocytes # (auto) 0.4 10 ^3/uL (0-1.3); Neutrophils # (auto) 9.3 10 ^3/uL (1.6-8.6); Neutrophils % (auto) 93.7 % (37.0-80.0); Red Blood Cells 4.26 10^6/uL (4.5-5.90); Red Cell Distribution Width 13.8 % (11.8-14.3); White Blood Cell 9.9 10^3/uL (4.4-10.8)
[2023-10-12 04:38] LABS: Alanine Aminotransferase 35 U/L (7-40); Albumin 2.7 g/dL (3.2-4.8); Alkaline Phosphatase 110 U/L (46-116); Anion Gap 6 (5-15); Aspartate Aminotransferase 47 U/L (13-40); Bilirubin, Total 0.7 mg/dL (0.2-1.0); Blood Urea Nitrogen 38 mg/dL (9-23); Calcium 8.3 mg/dL (8.7-10.4); Carbon Dioxide 34 mmol/L (20-30); Chloride 106 mmol/L (98-107); Glucose 147 mg/dL (74-106); Potassium 4.7 mmol/L (3.5-5.1); Sodium 146 mmol/L (136-145); Total Protein 4.5 g/dL (5.7-8.2)
[2023-10-12 08:35] LABS: Base Excess 6.1 mmol/L (-2.0-2.0)
[2023-10-13] VITALS (120 sets, daily range): BP systolic 66–179; BP diastolic 43–101; PULSE 65–126; RESP 3–27; TEMP 96.3–98.3; O2SAT 90–100
[2023-10-13 03:53] LABS: Basophils # (auto) 0 10 ^3/uL (0-0.2); Basophils % (auto) 0.1 % (0.0-2.0); Eosinophils # (auto) 0 10 ^3/uL (0-0.8); Eosinophils % (auto) 0.1 % (0.0-7.0); Hematocrit 39.1 % (41.0-53.0); Hemoglobin 13.6 g/dL (13.5-17.5); Lymphocytes # (auto) 0.2 10 ^3/uL (0.4-5.4); Lymphocytes % (auto) 2.7 % (10.0-50.0); Mean Corpuscular Hemoglobin 31.1 pg (28.0-32.0); Mean Corpuscular Hgb Conc. 34.7 g/dL (32.0-36.0); Mean Corpuscular Volume 89.6 fL (80.0-100.0); Monocytes # (auto) 0.3 10 ^3/uL (0-1.3); Neutrophils # (auto) 7.2 10 ^3/uL (1.6-8.6); Neutrophils % (auto) 93.1 % (37.0-80.0); Nucleated Red Blood Cells % 0.1 %; Red Blood Cells 4.36 10^6/uL (4.5-5.90); Red Cell Distribution Width 13.8 % (11.8-14.3); White Blood Cell 7.7 10^3/uL (4.4-10.8)
[2023-10-13 04:01] LABS: Alanine Aminotransferase 40 U/L (7-40); Alkaline Phosphatase 124 U/L (46-116); Anion Gap 5 (5-15); BUN/Creatinine Ratio 45.9 (10.0-20.0); Blood Urea Nitrogen 34 mg/dL (9-23); Calcium 8.4 mg/dL (8.7-10.4); Carbon Dioxide 34 mmol/L (20-30); Chloride 103 mmol/L (98-107); Glucose 108 mg/dL (74-106); Potassium 4.4 mmol/L (3.5-5.1); Sodium 142 mmol/L (136-145)
[2023-10-13 04:02] LABS: Albumin 2.8 g/dL (3.2-4.8); Aspartate Aminotransferase 53 U/L (13-40); Total Protein 4.7 g/dL (5.7-8.2)
[2023-10-13 07:43] LABS: Base Excess 5.1 mmol/L (-2.0-2.0)
[2023-10-14] VITALS (110 sets, daily range): BP systolic 66–185; BP diastolic 38–113; PULSE 68–117; RESP 10–30; TEMP 98–99.3; O2SAT 88–100
[2023-10-14 04:16] LABS: Basophils # (auto) 0 10 ^3/uL (0-0.2); Basophils % (auto) 0.3 % (0.0-2.0); Eosinophils # (auto) 0 10 ^3/uL (0-0.8); Eosinophils % (auto) 0.1 % (0.0-7.0); Hematocrit 44.3 % (41.0-53.0); Hemoglobin 15.2 g/dL (13.5-17.5); Lymphocytes # (auto) 0.2 10 ^3/uL (0.4-5.4); Lymphocytes % (auto) 1.9 % (10.0-50.0); Mean Corpuscular Hemoglobin 30.5 pg (28.0-32.0); Mean Corpuscular Hgb Conc. 34.2 g/dL (32.0-36.0); Mean Corpuscular Volume 89.1 fL (80.0-100.0); Monocytes # (auto) 0.3 10 ^3/uL (0-1.3); Monocytes % (auto) 3.1 % (0.0-12.0); Neutrophils # (auto) 10.5 10 ^3/uL (1.6-8.6); Neutrophils % (auto) 94.6 % (37.0-80.0); Nucleated Red Blood Cells % 0.1 %; Red Blood Cells 4.97 10^6/uL (4.5-5.90); Red Cell Distribution Width 13.9 % (11.8-14.3)
[2023-10-14 04:49] LABS: Alanine Aminotransferase 83 U/L (7-40); Albumin 3.4 g/dL (3.2-4.8); Alkaline Phosphatase 148 U/L (46-116); Anion Gap 4 (5-15); Aspartate Aminotransferase 80 U/L (13-40); BUN/Creatinine Ratio 36.7 (10.0-20.0); Blood Urea Nitrogen 33 mg/dL (9-23); Calcium 8.7 mg/dL (8.5-10.1); Carbon Dioxide 32 mmol/L (20-30); Chloride 104 mmol/L (98-107); Glucose 117 mg/dL (74-106); Potassium 4.2 mmol/L (3.5-5.1); Sodium 140 mmol/L (136-145)
[2023-10-14 04:50] LABS: Bilirubin, Total 1.8 mg/dL (0.2-1.0); Total Protein 5.5 g/dL (5.7-8.2)
[2023-10-14 07:34] LABS: Base Excess 6.7 mmol/L (-2.0-2.0)
[2023-10-14] MEDS: LACTULOSE 20Gm/30ML SOLN PO SCH (14:58)
[2023-10-15] VITALS (110 sets, daily range): BP systolic 58–164; BP diastolic 29–114; PULSE 66–114; RESP 13–34; TEMP 97.9–99.1; O2SAT 91–100
[2023-10-15 04:26] LABS: Chloride 106 mmol/L (98-107); Potassium 4.3 mmol/L (3.5-5.1); Sodium 144 mmol/L (136-145)
[2023-10-15 04:27] LABS: Anion Gap 7 (5-15); Carbon Dioxide 31 mmol/L (20-30)
[2023-10-15 04:28] LABS: Calcium 8.7 mg/dL (8.7-10.4)
[2023-10-15 04:29] LABS: Hematocrit 44.5 % (41.0-53.0); Hemoglobin 15.3 g/dL (13.5-17.5); Mean Corpuscular Hemoglobin 30.7 pg (28.0-32.0); Mean Corpuscular Hgb Conc. 34.4 g/dL (32.0-36.0); Mean Corpuscular Volume 89.1 fL (80.0-100.0); Red Blood Cells 4.99 10^6/uL (4.5-5.90); Red Cell Distribution Width 14.2 % (11.8-14.3)
[2023-10-15 04:33] LABS: BUN/Creatinine Ratio 39.3 (10.0-20.0); Blood Urea Nitrogen 35 mg/dL (9-23); Glucose 119 mg/dL (74-106)
[2023-10-15 04:56] LABS: Basophils % (manual) 0 (0.0-2.0); Blast Cells 0; Eosinophils % (manual) 0 (0-7); Metamyelocytes % 0; Myelocytes % 0; Promyelocytes % 0; Reactive Lymphocytes 0
[2023-10-15 06:54] LABS: Band Neutrophils % (manual) 4; Lymphocytes % (manual) 2 (10.0-50.0); Monocytes % (manual) 6 (0-12); Platelet Estimate Decreased; RBC Morphology Normal
[2023-10-15] MEDS ORDERED: NOREPINEPHRINE 8 MG/250ML KIT 250 ML IV SCH (14:45)
[2023-10-15] MEDS: NOREPINEPHRINE 8 MG/250ML KIT 250 ML IV SCH (15:15)
[2023-10-15 19:11] LABS: INR 1.25 (0.9-1.15)
[2023-10-16] VITALS (113 sets, daily range): BP systolic 70–153; BP diastolic 37–95; PULSE 60–110; RESP 10–28; TEMP 97.6–100.3; O2SAT 88–98
[2023-10-16 04:43] LABS: Basophils # (auto) 0 10 ^3/uL (0-0.2); Eosinophils # (auto) 0 10 ^3/uL (0-0.8); Eosinophils % (auto) 0.1 % (0.0-7.0); Hematocrit 40.2 % (41.0-53.0); Hemoglobin 13.8 g/dL (13.5-17.5); Lymphocytes # (auto) 0.3 10 ^3/uL (0.4-5.4); Lymphocytes % (auto) 2.9 % (10.0-50.0); Mean Corpuscular Hemoglobin 30.8 pg (28.0-32.0); Mean Corpuscular Hgb Conc. 34.3 g/dL (32.0-36.0); Mean Corpuscular Volume 89.6 fL (80.0-100.0); Monocytes # (auto) 0.4 10 ^3/uL (0-1.3); Neutrophils # (auto) 9.5 10 ^3/uL (1.6-8.6); Nucleated Red Blood Cells % 0.1 %; Red Blood Cells 4.49 10^6/uL (4.5-5.90); Red Cell Distribution Width 13.9 % (11.8-14.3); White Blood Cell 10.2 10^3/uL (4.4-10.8)
[2023-10-16 05:01] LABS: Alanine Aminotransferase 91 U/L (7-40); Albumin 2.9 g/dL (3.2-4.8); Alkaline Phosphatase 126 U/L (46-116); Anion Gap 9 (5-15); Aspartate Aminotransferase 51 U/L (13-40); BUN/Creatinine Ratio 37.5 (10.0-20.0); Bilirubin, Total 1.1 mg/dL (0.2-1.0); Blood Urea Nitrogen 36 mg/dL (9-23); Calcium 8.6 mg/dL (8.7-10.4); Carbon Dioxide 32 mmol/L (20-30); Chloride 107 mmol/L (98-107); Glucose 102 mg/dL (74-106); Potassium 4.1 mmol/L (3.5-5.1); Sodium 148 mmol/L (136-145); Total Protein 4.8 g/dL (5.7-8.2)
[2023-10-16 07:10] LABS: Base Excess 5.1 mmol/L (-2.0-2.0)
[2023-10-16] MEDS: D5W 5% 1,000 ML IV SCH (09:36)
[2023-10-16] MEDS: PHYTONADIONE (VIT K)10 MG/ML 1ML VIAL SUBCUT ONE ×2 (09:38→20:41)
[2023-10-16] MEDS: PANTOPRAZOLE 40 MG/10 ML VIAL INJ IV SCH (09:41)
[2023-10-17] VITALS (106 sets, daily range): BP systolic 79–149; BP diastolic 52–84; PULSE 58–85; RESP 12–22; TEMP 97.9–99; O2SAT 87–98
[2023-10-17 04:01] LABS: Basophils # (auto) 0 10 ^3/uL (0-0.2); Eosinophils # (auto) 0 10 ^3/uL (0-0.8); Monocytes # (auto) 0.3 10 ^3/uL (0-1.3); Neutrophils # (auto) 9.5 10 ^3/uL (1.6-8.6)
[2023-10-17 04:03] LABS: Basophils % (auto) 0.3 % (0.0-2.0); Hematocrit 38.4 % (41.0-53.0); Hemoglobin 13.3 g/dL (13.5-17.5); Lymphocytes # (auto) 0.2 10 ^3/uL (0.4-5.4); Lymphocytes % (auto) 1.8 % (10.0-50.0); Mean Corpuscular Hemoglobin 30.9 pg (28.0-32.0); Mean Corpuscular Hgb Conc. 34.6 g/dL (32.0-36.0); Mean Corpuscular Volume 89.3 fL (80.0-100.0); Monocytes % (auto) 3.5 % (0.0-12.0); Neutrophils % (auto) 94.4 % (37.0-80.0); Red Blood Cells 4.31 10^6/uL (4.5-5.90); Red Cell Distribution Width 13.9 % (11.8-14.3)
[2023-10-17 04:14] LABS: INR 1.29 (0.9-1.15); Partial Thromboplastin Time 22.8 SEC (24.5-34.5); Prothrombin Time 13.4 sec (9.3-11.8)
[2023-10-17 04:22] LABS: Chloride 107 mmol/L (98-107); Potassium 3.8 mmol/L (3.5-5.1); Sodium 144 mmol/L (136-145)
[2023-10-17 04:23] LABS: Anion Gap 5 (5-15); Calcium 8.2 mg/dL (8.5-10.1); Carbon Dioxide 32 mmol/L (20-30)
[2023-10-17 04:28] LABS: BUN/Creatinine Ratio 40.7 (10.0-20.0); Blood Urea Nitrogen 33 mg/dL (9-23); Glucose 122 mg/dL (74-106)
[2023-10-17] MEDS ORDERED: KETAMINE 50mg/ML 1ml syringe ONE (07:45)
[2023-10-17] MEDS ORDERED: MIDAZOLAM HCL 2MG/2ML 2ml VIAL (1mg/ml) ONE (07:45)
[2023-10-17] MEDS ORDERED: ROCURONIUM 10MG/ML 10ML VIAL IV ONE (07:46)
[2023-10-17] MEDS ORDERED: HYDROmorphone HCL 2 MG/ML VL/or syr ONE (07:46)
[2023-10-17] MEDS ORDERED: ceFAZolin 1GM VL ONE (08:15)
[2023-10-17] MEDS: LIDOCAINE 1% HCL (LOCAL ANESTH.) INJ 20ML MDV IJ ONE (08:20)
[2023-10-17] MEDS: LIDOCAINE 1% HCL (LOCAL ANESTH.) INJ 20ML MDV ONE (22:08)
[2023-10-18] VITALS (112 sets, daily range): BP systolic 78–136; BP diastolic 46–86; PULSE 57–92; RESP 16–21; TEMP 98–99; O2SAT 91–100
[2023-10-18 03:46] LABS: Basophils # (auto) 0 10 ^3/uL (0-0.2); Basophils % (auto) 0.1 % (0.0-2.0); Chloride 107 mmol/L (98-107); Eosinophils # (auto) 0 10 ^3/uL (0-0.8); Hematocrit 34.8 % (41.0-53.0); Hemoglobin 12.3 g/dL (13.5-17.5); Lymphocytes # (auto) 0.1 10 ^3/uL (0.4-5.4); Lymphocytes % (auto) 1.9 % (10.0-50.0); Potassium 3.7 mmol/L (3.5-5.1); Sodium 148 mmol/L (136-145)
[2023-10-18 03:47] LABS: Anion Gap 9 (5-15); Calcium 8.2 mg/dL (8.7-10.4); Carbon Dioxide 32 mmol/L (20-30)
[2023-10-18 03:50] LABS: Mean Corpuscular Hemoglobin 31.1 pg (28.0-32.0); Mean Corpuscular Hgb Conc. 35.3 g/dL (32.0-36.0); Mean Corpuscular Volume 88.2 fL (80.0-100.0); Monocytes # (auto) 0.2 10 ^3/uL (0-1.3); Monocytes % (auto) 3.3 % (0.0-12.0); Neutrophils # (auto) 6.7 10 ^3/uL (1.6-8.6); Neutrophils % (auto) 94.7 % (37.0-80.0); Red Blood Cells 3.95 10^6/uL (4.5-5.90)
[2023-10-18 03:52] LABS: BUN/Creatinine Ratio 40.3 (10.0-20.0); Blood Urea Nitrogen 27 mg/dL (9-23); Glucose 111 mg/dL (74-106)
[2023-10-18 08:13] LABS: Base Excess 7.7 mmol/L (-2.0-2.0)
[2023-10-18] MEDS: ALBUMIN 25% 100 ML IV ONE (09:26)
[2023-10-18] MEDS: D5W 5% 1,000 ML IV SCH (14:42)
[2023-10-19] VITALS (106 sets, daily range): BP systolic 78–130; BP diastolic 46–82; PULSE 59–88; RESP 15–25; TEMP 97.1–98; O2SAT 87–100
[2023-10-19 03:45] LABS: Basophils # (auto) 0 10 ^3/uL (0-0.2); Eosinophils # (auto) 0 10 ^3/uL (0-0.8); Eosinophils % (auto) 0.1 % (0.0-7.0); Lymphocytes # (auto) 0.1 10 ^3/uL (0.4-5.4); Lymphocytes % (auto) 2.4 % (10.0-50.0); Monocytes # (auto) 0.2 10 ^3/uL (0-1.3); Neutrophils # (auto) 5.2 10 ^3/uL (1.6-8.6); Nucleated Red Blood Cells % 0.1 %
[2023-10-19 03:48] LABS: Basophils % (auto) 0.1 % (0.0-2.0); Hematocrit 34.5 % (41.0-53.0); Hemoglobin 12.1 g/dL (13.5-17.5); Mean Corpuscular Hemoglobin 30.9 pg (28.0-32.0); Mean Corpuscular Hgb Conc. 35.1 g/dL (32.0-36.0); Mean Corpuscular Volume 88.1 fL (80.0-100.0); Monocytes % (auto) 3.9 % (0.0-12.0); Neutrophils % (auto) 93.5 % (37.0-80.0); Red Blood Cells 3.92 10^6/uL (4.5-5.90); Red Cell Distribution Width 13.8 % (11.8-14.3); White Blood Cell 5.6 10^3/uL (4.4-10.8)
[2023-10-19 04:01] LABS: Alanine Aminotransferase 59 U/L (7-40); Albumin 3.2 g/dL (3.2-4.8); Alkaline Phosphatase 96 U/L (46-116); Anion Gap 3 (5-15); Aspartate Aminotransferase 70 U/L (13-40); BUN/Creatinine Ratio 33.3 (10.0-20.0); Blood Urea Nitrogen 21 mg/dL (9-23); Calcium 8.1 mg/dL (8.5-10.1); Carbon Dioxide 33 mmol/L (20-30); Chloride 105 mmol/L (98-107); Glucose 118 mg/dL (74-106); Potassium 3.6 mmol/L (3.5-5.1); Sodium 141 mmol/L (136-145)
[2023-10-19 04:02] LABS: Bilirubin, Total 1.4 mg/dL (0.2-1.0)
[2023-10-20] VITALS (112 sets, daily range): BP systolic 79–139; BP diastolic 51–90; PULSE 62–114; RESP 10–23; TEMP 97.3–99.4; O2SAT 92–99
[2023-10-20 04:02] LABS: Basophils # (auto) 0 10 ^3/uL (0-0.2); Eosinophils # (auto) 0 10 ^3/uL (0-0.8); Hematocrit 34.2 % (41.0-53.0); Lymphocytes # (auto) 0.1 10 ^3/uL (0.4-5.4); Mean Corpuscular Hemoglobin 31.3 pg (28.0-32.0); Mean Corpuscular Volume 89.4 fL (80.0-100.0); Monocytes # (auto) 0.2 10 ^3/uL (0-1.3); Monocytes % (auto) 3.3 % (0.0-12.0); Neutrophils # (auto) 5.1 10 ^3/uL (1.6-8.6); Neutrophils % (auto) 94.7 % (37.0-80.0); Red Blood Cells 3.82 10^6/uL (4.5-5.90); Red Cell Distribution Width 13.7 % (11.8-14.3); White Blood Cell 5.4 10^3/uL (4.4-10.8)
[2023-10-20 04:17] LABS: Alanine Aminotransferase 69 U/L (7-40); Alkaline Phosphatase 96 U/L (46-116); Anion Gap 4 (5-15); Aspartate Aminotransferase 79 U/L (13-40); BUN/Creatinine Ratio 30.2 (10.0-20.0); Bilirubin, Total 1.5 mg/dL (0.2-1.0); Blood Urea Nitrogen 16 mg/dL (9-23); Calcium 8.1 mg/dL (8.5-10.1); Carbon Dioxide 32 mmol/L (20-30); Chloride 103 mmol/L (98-107); Glucose 113 mg/dL (74-106); Potassium 3.2 mmol/L (3.5-5.1); Sodium 139 mmol/L (136-145); Total Protein 4.8 g/dL (5.7-8.2)
[2023-10-20 06:51] LABS: Base Excess 5.6 mmol/L (-2.0-2.0)
[2023-10-20] MEDS: POTASSIUM CHL 20MEQ/100ML 100 ML IV ONE (08:40)
[2023-10-20] MEDS: CEFEPIME 2GM/50ML NS 50 ML IV SCH (13:26)
[2023-10-21] VITALS (106 sets, daily range): BP systolic 103–170; BP diastolic 58–108; PULSE 95–137; RESP 18–34; TEMP 97.8–99.4; O2SAT 93–99
[2023-10-21 03:59] LABS: Basophils # (auto) 0 10 ^3/uL (0-0.2); Eosinophils # (auto) 0 10 ^3/uL (0-0.8); Hematocrit 38.3 % (41.0-53.0); Hemoglobin 13.1 g/dL (13.5-17.5); Lymphocytes # (auto) 0.1 10 ^3/uL (0.4-5.4); Mean Corpuscular Hemoglobin 30.2 pg (28.0-32.0); Mean Corpuscular Hgb Conc. 34.2 g/dL (32.0-36.0); Monocytes # (auto) 0.2 10 ^3/uL (0-1.3)
[2023-10-21 04:00] LABS: Eosinophils % (auto) 0.1 % (0.0-7.0); Mean Corpuscular Volume 88.2 fL (80.0-100.0); Monocytes % (auto) 3.7 % (0.0-12.0); Neutrophils # (auto) 4.8 10 ^3/uL (1.6-8.6); Neutrophils % (auto) 94.2 % (37.0-80.0); Red Blood Cells 4.34 10^6/uL (4.5-5.90); Red Cell Distribution Width 13.8 % (11.8-14.3)
[2023-10-21 04:06] LABS: Alanine Aminotransferase 104 U/L (7-40); Albumin 3.1 g/dL (3.2-4.8); Alkaline Phosphatase 102 U/L (46-116); Anion Gap 5 (5-15); Aspartate Aminotransferase 119 U/L (13-40); BUN/Creatinine Ratio 30.6 (10.0-20.0); Bilirubin, Total 1.9 mg/dL (0.2-1.0); Blood Urea Nitrogen 15 mg/dL (9-23); Calcium 8.3 mg/dL (8.7-10.4); Carbon Dioxide 28 mmol/L (20-30); Chloride 105 mmol/L (98-107); Glucose 122 mg/dL (74-106); Potassium 3.4 mmol/L (3.5-5.1); Sodium 138 mmol/L (136-145)
[2023-10-21 04:07] LABS: Total Protein 5.2 g/dL (5.7-8.2)
[2023-10-21 05:26] LABS: Platelet Estimate Decreased
[2023-10-21] MEDS: ENOXAPARIN SOD 40 MG/0.4 ML SYRINGE SC ONE (10:00)
[2023-10-21] MEDS: POTASSIUM EFFERVESENT TAB 25 MEQ ONE (19:26)
[2023-10-21] MEDS: POTASSIUM EFFERVESENT TAB 25 MEQ GT ONE (19:29)
[2023-10-22] VITALS (106 sets, daily range): BP systolic 63–141; BP diastolic 33–101; PULSE 57–177; RESP 16–24; TEMP 97.2–98.5; O2SAT 87–100
[2023-10-22 04:15] LABS: Basophils # (auto) 0 10 ^3/uL (0-0.2); Eosinophils # (auto) 0 10 ^3/uL (0-0.8); Lymphocytes # (auto) 0.1 10 ^3/uL (0.4-5.4); Monocytes # (auto) 0.1 10 ^3/uL (0-1.3); Neutrophils # (auto) 2.9 10 ^3/uL (1.6-8.6); Nucleated Red Blood Cells % 0.1 %; White Blood Cell 3.1 10^3/uL (4.4-10.8)
[2023-10-22 04:16] LABS: Basophils % (auto) 0.1 % (0.0-2.0); Eosinophils % (auto) 0.1 % (0.0-7.0); Lymphocytes % (auto) 2.8 % (10.0-50.0); Mean Corpuscular Hemoglobin 30.9 pg (28.0-32.0); Mean Corpuscular Hgb Conc. 35.4 g/dL (32.0-36.0); Mean Corpuscular Volume 87.3 fL (80.0-100.0); Monocytes % (auto) 4.7 % (0.0-12.0); Neutrophils % (auto) 92.3 % (37.0-80.0)
[2023-10-22 04:24] LABS: Alanine Aminotransferase 151 U/L (7-40); Alkaline Phosphatase 100 U/L (46-116); Anion Gap 3 (5-15); Blood Urea Nitrogen 21 mg/dL (9-23); Calcium 8.1 mg/dL (8.7-10.4); Carbon Dioxide 31 mmol/L (20-30); Chloride 105 mmol/L (98-107); Glucose 115 mg/dL (74-106); Potassium 3.6 mmol/L (3.5-5.1); Sodium 139 mmol/L (136-145)
[2023-10-22 04:25] LABS: Albumin 2.8 g/dL (3.2-4.8); Aspartate Aminotransferase 136 U/L (13-40); Bilirubin, Total 1.6 mg/dL (0.2-1.0); Total Protein 4.7 g/dL (5.7-8.2)
[2023-10-22] MEDS: AMIODARONE BOLUS KIT 100 ML IV ONE ×2 (06:11→06:41)
[2023-10-22] MEDS: AMIODARONE 450mg/250ml AE 250 ML IV SCH ×2 (06:41→13:47)
[2023-10-22 08:16] LABS: Base Excess 5.3 mmol/L (-2.0-2.0)
[2023-10-22] MEDS: POTASSIUM PHOSPHATE 26.4 MEQ in SODIUM CHL 0.9% 100 ML IV ONE (15:37)
[2023-10-22] MEDS: FUROSEMIDE 40 MG/4 ML VIAL IV SCH (17:47)
[2023-10-22 17:58] LABS: Urine Bacteria None Seen /hpf (None Seen)
[2023-10-22 18:48] LABS: Urine Amorphous Crystal FEW /hpf (None Seen); Urine Blood 3+ /uL (Negative); Urine Clarity Turbid (Clear); Urine Color Light-Orange (Yellow); Urine Hyaline Cast FEW /lpf (0 - 2); Urine Mucus FEW (None Seen); Urine Protein, UAD 2+ (Negative); Urine Specific Gravity 1.024 (1.001-1.035); Urine Urobilinogen 2 mg/dL (Negative); Urine WBC 18 /hpf (0 - 3)
[2023-10-23] VITALS (105 sets, daily range): BP systolic 87–132; BP diastolic 50–88; PULSE 66–102; RESP 9–25; TEMP 98.1–98.8; O2SAT 90–99
[2023-10-23 04:07] LABS: Basophils # (auto) 0 10 ^3/uL (0-0.2); Basophils % (auto) 0.2 % (0.0-2.0); Eosinophils # (auto) 0 10 ^3/uL (0-0.8); Eosinophils % (auto) 0.1 % (0.0-7.0); Hematocrit 35.8 % (41.0-53.0); Hemoglobin 12.7 g/dL (13.5-17.5); Lymphocytes # (auto) 0.1 10 ^3/uL (0.4-5.4); Lymphocytes % (auto) 2.5 % (10.0-50.0); Mean Corpuscular Hemoglobin 31.4 pg (28.0-32.0); Mean Corpuscular Hgb Conc. 35.5 g/dL (32.0-36.0); Mean Corpuscular Volume 88.4 fL (80.0-100.0); Monocytes # (auto) 0.3 10 ^3/uL (0-1.3); Monocytes % (auto) 5.1 % (0.0-12.0); Neutrophils # (auto) 5.3 10 ^3/uL (1.6-8.6); Neutrophils % (auto) 92.1 % (37.0-80.0); Nucleated Red Blood Cells % 0.3 %; Red Blood Cells 4.05 10^6/uL (4.5-5.90); Red Cell Distribution Width 14.1 % (11.8-14.3); White Blood Cell 5.8 10^3/uL (4.4-10.8)
[2023-10-23 07:27] LABS: Alanine Aminotransferase 172 U/L (7-40); Alkaline Phosphatase 117 U/L (46-116); Anion Gap 4 (5-15); Blood Urea Nitrogen 29 mg/dL (9-23); Calcium 7.9 mg/dL (8.5-10.1); Carbon Dioxide 31 mmol/L (20-30); Chloride 106 mmol/L (98-107); Glucose 167 mg/dL (74-106); Potassium 3.5 mmol/L (3.5-5.1); Sodium 141 mmol/L (136-145)
[2023-10-23 07:28] LABS: Albumin 2.9 g/dL (3.2-4.8); Aspartate Aminotransferase 102 U/L (13-40); Bilirubin, Total 1.3 mg/dL (0.2-1.0); Total Protein 4.9 g/dL (5.7-8.2)
[2023-10-23 08:17] LABS: Base Excess 5.7 mmol/L (-2.0-2.0)
[2023-10-23] MEDS: ENOXAPARIN SOD 100 MG/1 ML SYRINGE SC SCH (09:31)
[2023-10-23] MEDS: AMIODARONE HCL 200 MG TAB GT SCH (09:32)
[2023-10-23] MEDS: MEROPENEM 1GM IVPB 50 ML IV ONE (23:38)
[2023-10-24] VITALS (105 sets, daily range): BP systolic 85–139; BP diastolic 26–118; PULSE 63–97; RESP 9–27; TEMP 98.3–99.7; O2SAT 92–100
[2023-10-24 04:17] LABS: Basophils # (auto) 0.1 10 ^3/uL (0-0.2); Eosinophils # (auto) 0 10 ^3/uL (0-0.8); Eosinophils % (auto) 0.1 % (0.0-7.0); Hematocrit 35.1 % (41.0-53.0); Hemoglobin 11.8 g/dL (13.5-17.5); Lymphocytes # (auto) 0.2 10 ^3/uL (0.4-5.4); Mean Corpuscular Hemoglobin 30.4 pg (28.0-32.0); Mean Corpuscular Hgb Conc. 33.7 g/dL (32.0-36.0); Mean Corpuscular Volume 90.3 fL (80.0-100.0); Monocytes # (auto) 0.3 10 ^3/uL (0-1.3); Monocytes % (auto) 5.2 % (0.0-12.0); Neutrophils # (auto) 4.8 10 ^3/uL (1.6-8.6); Neutrophils % (auto) 90.7 % (37.0-80.0); Nucleated Red Blood Cells % 0.4 %; Red Blood Cells 3.89 10^6/uL (4.5-5.90); Red Cell Distribution Width 14.1 % (11.8-14.3); White Blood Cell 5.3 10^3/uL (4.4-10.8)
[2023-10-24 04:42] LABS: Alanine Aminotransferase 167 U/L (7-40); Albumin 2.8 g/dL (3.2-4.8); Alkaline Phosphatase 110 U/L (46-116); Anion Gap 7 (5-15); Aspartate Aminotransferase 84 U/L (13-40); BUN/Creatinine Ratio 36.2 (10.0-20.0); Blood Urea Nitrogen 21 mg/dL (9-23); Calcium 7.9 mg/dL (8.5-10.1); Carbon Dioxide 27 mmol/L (20-30); Chloride 107 mmol/L (98-107); Glucose 129 mg/dL (74-106); Potassium 3.6 mmol/L (3.5-5.1); Sodium 141 mmol/L (136-145)
[2023-10-24 04:43] LABS: Total Protein 4.7 g/dL (5.7-8.2)
[2023-10-24 05:41] LABS: Platelet Estimate Decreased
[2023-10-24] MEDS: MEROPENEM 1GM IVPB 50 ML IV SCH (06:38)
[2023-10-24 07:43] LABS: Base Excess 7.2 mmol/L (-2.0-2.0)
[2023-10-24] MEDS ORDERED: AZITHROMYCIN 500MG/ 250ML 250 ML IV SCH (10:00)
[2023-10-24] MEDS: APIXABAN 2.5 MG TAB PO SCH (10:03)
[2023-10-24] MEDS: GLYCOPYRROLATE 0.2 MG/ML 1ML VIAL IV SCH (14:45)
[2023-10-25] VITALS (110 sets, daily range): BP systolic 72–181; BP diastolic 47–144; PULSE 66–139; RESP 14–36; TEMP 96.9–99.6; O2SAT 87–100
[2023-10-25 04:50] LABS: Alanine Aminotransferase 159 U/L (7-40); Albumin 2.8 g/dL (3.2-4.8); Alkaline Phosphatase 106 U/L (46-116); Anion Gap 4 (5-15); Aspartate Aminotransferase 85 U/L (13-40); BUN/Creatinine Ratio 55.8 (10.0-20.0); Basophils # (auto) 0 10 ^3/uL (0-0.2); Bilirubin, Total 0.9 mg/dL (0.2-1.0); Blood Urea Nitrogen 29 mg/dL (9-23); Calcium 8.1 mg/dL (8.7-10.4); Carbon Dioxide 31 mmol/L (20-30); Chloride 108 mmol/L (98-107); Eosinophils # (auto) 0 10 ^3/uL (0-0.8); Glucose 170 mg/dL (74-106); Hemoglobin 11.3 g/dL (13.5-17.5); Lymphocytes # (auto) 0.1 10 ^3/uL (0.4-5.4); Monocytes # (auto) 0.2 10 ^3/uL (0-1.3); Neutrophils # (auto) 3.6 10 ^3/uL (1.6-8.6); Potassium 3.1 mmol/L (3.5-5.1); Red Cell Distribution Width 14.2 % (11.8-14.3); Sodium 143 mmol/L (136-145); Total Protein 4.6 g/dL (5.7-8.2); White Blood Cell 3.9 10^3/uL (4.4-10.8)
[2023-10-25 04:54] LABS: Eosinophils % (auto) 0.1 % (0.0-7.0); Hematocrit 32.2 % (41.0-53.0); Lymphocytes % (auto) 2.8 % (10.0-50.0); Mean Corpuscular Hemoglobin 30.9 pg (28.0-32.0); Mean Corpuscular Hgb Conc. 35.1 g/dL (32.0-36.0); Mean Corpuscular Volume 87.9 fL (80.0-100.0); Monocytes % (auto) 5.1 % (0.0-12.0); Nucleated Red Blood Cells % 0.1 %; Red Blood Cells 3.66 10^6/uL (4.5-5.90)
[2023-10-25] MEDS: hydrALAZINE HCL 20 MG/ML VL IV PRN (12:01)
[2023-10-25] MEDS: POTASSIUM CHL 20MEQ/100ML 100 ML IV SCH (12:33)
[2023-10-25] MEDS: LORazepam 0.5 MG TAB PEG SCH (14:20)
[2023-10-26] VITALS (113 sets, daily range): BP systolic 69–154; BP diastolic 38–89; PULSE 67–126; RESP 20–28; TEMP 97.3–99.2; O2SAT 88–98
[2023-10-26 04:34] LABS: Basophils # (auto) 0 10 ^3/uL (0-0.2); Eosinophils # (auto) 0 10 ^3/uL (0-0.8); Eosinophils % (auto) 0.2 % (0.0-7.0); Monocytes # (auto) 0.2 10 ^3/uL (0-1.3); Neutrophils # (auto) 3.1 10 ^3/uL (1.6-8.6); Red Cell Distribution Width 14.4 % (11.8-14.3); White Blood Cell 3.5 10^3/uL (4.4-10.8)
[2023-10-26 04:37] LABS: Alanine Aminotransferase 192 U/L (7-40); Alkaline Phosphatase 121 U/L (46-116); Anion Gap 5 (5-15); Aspartate Aminotransferase 118 U/L (13-40); BUN/Creatinine Ratio 45.3 (10.0-20.0); Bilirubin, Total 0.9 mg/dL (0.2-1.0); Blood Urea Nitrogen 24 mg/dL (9-23); Calcium 8.5 mg/dL (8.7-10.4); Carbon Dioxide 30 mmol/L (20-30); Chloride 107 mmol/L (98-107); Glucose 94 mg/dL (74-106); Hemoglobin 12.5 g/dL (13.5-17.5); Lymphocytes # (auto) 0.2 10 ^3/uL (0.4-5.4); Lymphocytes % (auto) 4.4 % (10.0-50.0); Mean Corpuscular Hemoglobin 31.4 pg (28.0-32.0); Mean Corpuscular Hgb Conc. 34.8 g/dL (32.0-36.0); Mean Corpuscular Volume 90.2 fL (80.0-100.0); Monocytes % (auto) 5.8 % (0.0-12.0); Neutrophils % (auto) 89.6 % (37.0-80.0); Nucleated Red Blood Cells % 0.2 %; Potassium 3.6 mmol/L (3.5-5.1); Red Blood Cells 3.99 10^6/uL (4.5-5.90); Sodium 142 mmol/L (136-145); Total Protein 5.1 g/dL (5.7-8.2)
[2023-10-26 11:21] LABS: Base Excess 4.8 mmol/L (-2.0-2.0)
[2023-10-27] VITALS (99 sets, daily range): BP systolic 67–185; BP diastolic 35–100; PULSE 74–121; RESP 11–94; TEMP 98–99.3; O2SAT 28–100
[2023-10-27 04:00] LABS: Hematocrit 29.3 % (41.0-53.0); Hemoglobin 10.3 g/dL (13.5-17.5); Mean Corpuscular Hemoglobin 30.9 pg (28.0-32.0); Mean Corpuscular Hgb Conc. 35.1 g/dL (32.0-36.0); Red Blood Cells 3.33 10^6/uL (4.5-5.90); Red Cell Distribution Width 13.9 % (11.8-14.3); White Blood Cell 6.4 10^3/uL (4.4-10.8)
[2023-10-27 04:07] LABS: Basophils % (manual) 0 (0.0-2.0); Blast Cells 0; Eosinophils % (manual) 0 (0-7); Metamyelocytes % 0; Monocytes % (manual) 0 (0-12); Myelocytes % 0; Promyelocytes % 0; Reactive Lymphocytes 0
[2023-10-27 04:32] LABS: Alanine Aminotransferase 158 U/L (7-40); Albumin 2.3 g/dL (3.2-4.8); Alkaline Phosphatase 99 U/L (46-116); Aspartate Aminotransferase 86 U/L (13-40); BUN/Creatinine Ratio 80.5 (10.0-20.0); Blood Urea Nitrogen 33 mg/dL (9-23); Calcium 7.2 mg/dL (8.7-10.4); Chloride 111 mmol/L (98-107); Glucose 110 mg/dL (74-106); Potassium 3.2 mmol/L (3.5-5.1); Sodium 145 mmol/L (136-145)
[2023-10-27 04:33] LABS: Bilirubin, Total 0.8 mg/dL (0.2-1.0); Total Protein 3.9 g/dL (5.7-8.2)
[2023-10-27 05:08] LABS: Anion Gap 7 (5-15); Carbon Dioxide 27 mmol/L (20-30)
[2023-10-27 06:30] LABS: Anisocytosis Slight; Band Neutrophils % (manual) 16; Lymphocytes % (manual) 1 (10.0-50.0); Macrocytosis Slight; Platelet Estimate Markedly Decreased; Polychromasia Slight
[2023-10-27 09:39] LABS: Base Excess 7.5 mmol/L (-2.0-2.0)
[2023-10-27] MEDS: LORazepam 2MG/ML-1ML VIAL IV ONE (16:03)
[2023-10-27] MEDS: POTASSIUM EFFERVESENT TAB 25 MEQ PO ONE (16:03)
[2023-10-27] MEDS: methylPREDNISolone SOD SUCC 125 MG/2 ML VL IV SCH (21:57)
[2023-10-28] VITALS (99 sets, daily range): BP systolic 85–174; BP diastolic 54–102; PULSE 84–121; RESP 13–39; TEMP 96.8–100; O2SAT 87–100
[2023-10-28 04:33] LABS: Basophils # (auto) 0 10 ^3/uL (0-0.2); Basophils % (auto) 0.1 % (0.0-2.0); Eosinophils # (auto) 0 10 ^3/uL (0-0.8); Hemoglobin 12.2 g/dL (13.5-17.5); Lymphocytes # (auto) 0.2 10 ^3/uL (0.4-5.4); Monocytes # (auto) 0.2 10 ^3/uL (0-1.3); White Blood Cell 5.3 10^3/uL (4.4-10.8)
[2023-10-28 04:40] LABS: Alanine Aminotransferase 228 U/L (7-40); Alkaline Phosphatase 126 U/L (46-116); Anion Gap 6 (5-15); Aspartate Aminotransferase 126 U/L (13-40); BUN/Creatinine Ratio 66.1 (10.0-20.0); Bilirubin, Total 1.3 mg/dL (0.2-1.0); Blood Urea Nitrogen 37 mg/dL (9-23); Calcium 8.4 mg/dL (8.5-10.1); Carbon Dioxide 30 mmol/L (20-30); Chloride 106 mmol/L (98-107); Glucose 87 mg/dL (74-106); Magnesium 2.2 mg/dL (1.6-2.6); Potassium 3.3 mmol/L (3.5-5.1); Sodium 142 mmol/L (136-145)
[2023-10-28 04:41] LABS: Total Protein 4.9 g/dL (5.7-8.2)
[2023-10-28 04:42] LABS: Eosinophils % (auto) 0.1 % (0.0-7.0); Lymphocytes % (auto) 2.9 % (10.0-50.0); Mean Corpuscular Hemoglobin 30.8 pg (28.0-32.0); Mean Corpuscular Hgb Conc. 34.7 g/dL (32.0-36.0); Mean Corpuscular Volume 88.7 fL (80.0-100.0); Monocytes % (auto) 3.5 % (0.0-12.0); Neutrophils % (auto) 93.4 % (37.0-80.0); Nucleated Red Blood Cells % 0.2 %; Red Blood Cells 3.95 10^6/uL (4.5-5.90); Red Cell Distribution Width 14.5 % (11.8-14.3)
[2023-10-28] MEDS: SACUBITRIL-VALSARTAN 24mg/26mg TAB PO SCH (09:53)
[2023-10-28] MEDS: POTASSIUM CHL 20MEQ/100ML 100 ML IV ONE (09:54)
[2023-10-28] MEDS: ACETYLCYSTEINE 20%(200MG/ML) SOL 4ML NEB SCH (18:00)
[2023-10-29] VITALS (99 sets, daily range): BP systolic 71–205; BP diastolic 45–182; PULSE 91–166; RESP 17–45; TEMP 97.9–100; O2SAT 89–100
[2023-10-29 04:56] LABS: Basophils # (auto) 0 10 ^3/uL (0-0.2); Eosinophils # (auto) 0 10 ^3/uL (0-0.8); Monocytes # (auto) 0.2 10 ^3/uL (0-1.3); Monocytes % (auto) 3.2 % (0.0-12.0); Nucleated Red Blood Cells % 0.3 %
[2023-10-29 04:58] LABS: Basophils % (auto) 0.2 % (0.0-2.0); Eosinophils % (auto) 0.1 % (0.0-7.0); Hematocrit 37.8 % (41.0-53.0); Hemoglobin 12.8 g/dL (13.5-17.5); Lymphocytes # (auto) 0.1 10 ^3/uL (0.4-5.4); Lymphocytes % (auto) 2.1 % (10.0-50.0); Mean Corpuscular Hemoglobin 30.5 pg (28.0-32.0); Mean Corpuscular Hgb Conc. 33.9 g/dL (32.0-36.0); Mean Corpuscular Volume 90.1 fL (80.0-100.0); Neutrophils # (auto) 6.6 10 ^3/uL (1.6-8.6); Neutrophils % (auto) 94.4 % (37.0-80.0); Red Cell Distribution Width 14.4 % (11.8-14.3)
[2023-10-29 05:15] LABS: Albumin 2.5 g/dL (3.2-4.8); Alkaline Phosphatase 124 U/L (46-116); Aspartate Aminotransferase 129 U/L (13-40); Calcium 8.2 mg/dL (8.5-10.1); Glucose 76 mg/dL (74-106)
[2023-10-29 05:16] LABS: Bilirubin, Total 1.1 mg/dL (0.2-1.0); Total Protein 4.9 g/dL (5.7-8.2)
[2023-10-29 06:37] LABS: Carbon Dioxide 17 mmol/L (20-30)
[2023-10-29 06:40] LABS: Sodium 143 mmol/L (136-145)
[2023-10-29 06:41] LABS: Alanine Aminotransferase 243 U/L (7-40); Anion Gap 19 (5-15); BUN/Creatinine Ratio 65.5 (10.0-20.0); Blood Urea Nitrogen 38 mg/dL (9-23); Chloride 107 mmol/L (98-107); Potassium 3.1 mmol/L (3.5-5.1)
[2023-10-29] MEDS ORDERED: FUROSEMIDE 40 MG/4 ML VIAL IV SCH (10:00)
[2023-10-29] MEDS: levoFLOXacin 750MG 150 ML IV SCH (10:13)
[2023-10-29] MEDS: SODIUM CHLORIDE 0.9% 500 ML IV ONE (10:17)
[2023-10-29] MEDS: POTASSIUM CHL 20MEQ/100ML 100 ML IV SCH (10:19)
[2023-10-29] MEDS: FLUCONAZOLE 200MG/100ML 100 ML IV SCH (13:05)
[2023-10-29] MEDS: MORPHINE SULFATE INJ 2 MG/ml SYRG IV PRN (13:06)
[2023-10-29] MEDS: AMIODARONE 450mg/250ml AE 250 ML IV SCH ×2 (14:44→20:20)
[2023-10-29 15:46] LABS: Alanine Aminotransferase 260 U/L (7-40); Albumin 3.1 g/dL (3.2-4.8); Alkaline Phosphatase 135 U/L (46-116); Anion Gap 8 (5-15); Aspartate Aminotransferase 132 U/L (13-40); BUN/Creatinine Ratio 69.6 (10.0-20.0); Blood Urea Nitrogen 39 mg/dL (9-23); Calcium 8.3 mg/dL (8.5-10.1); Carbon Dioxide 26 mmol/L (20-30); Chloride 108 mmol/L (98-107); Glucose 83 mg/dL (74-106); Magnesium 2.3 mg/dL (1.6-2.6); Potassium 4.2 mmol/L (3.5-5.1); Sodium 142 mmol/L (136-145)
[2023-10-29 15:47] LABS: Bilirubin, Total 1.4 mg/dL (0.2-1.0)
[2023-10-29] MEDS: ACETAMINOPHEN 325 MG TAB PO PRN (18:17)
[2023-10-30] VITALS (105 sets, daily range): BP systolic 76–207; BP diastolic 47–118; PULSE 87–119; RESP 13–37; TEMP 97.9–99.2; O2SAT 87–98
[2023-10-30 08:34] LABS: Hemoglobin 11.6 g/dL (13.5-17.5); Red Cell Distribution Width 14.2 % (11.8-14.3); White Blood Cell 10.4 10^3/uL (4.4-10.8)
[2023-10-30 08:35] LABS: Hematocrit 33.7 % (41.0-53.0); Mean Corpuscular Hgb Conc. 34.4 g/dL (32.0-36.0); Mean Corpuscular Volume 90.1 fL (80.0-100.0); Red Blood Cells 3.74 10^6/uL (4.5-5.90)
[2023-10-30 08:43] LABS: Chloride 108 mmol/L (98-107); Potassium 3.5 mmol/L (3.5-5.1); Sodium 141 mmol/L (136-145)
[2023-10-30 08:44] LABS: Anion Gap 7 (5-15); Carbon Dioxide 26 mmol/L (20-30)
[2023-10-30 08:47] LABS: Basophils % (manual) 0 (0.0-2.0); Blast Cells 0; Eosinophils % (manual) 0 (0-7); Metamyelocytes % 0; Myelocytes % 0; Promyelocytes % 0; Reactive Lymphocytes 0
[2023-10-30 08:49] LABS: Glucose 129 mg/dL (74-106)
[2023-10-30 09:21] LABS: BUN/Creatinine Ratio 69.8 (10.0-20.0); Blood Urea Nitrogen 44 mg/dL (9-23)
[2023-10-30 09:33] LABS: Band Neutrophils % (manual) 16; Lymphocytes % (manual) 2 (10.0-50.0); Monocytes % (manual) 3 (0-12)
[2023-10-30 09:34] LABS: Ovalocytes FEW; Platelet Estimate Markedly Decreased
[2023-10-30] MEDS: OMNIPAQUE 12mg/ml 500ml ORAL SOLUTION PO ONE (15:24)
[2023-10-30] MEDS: IOHEXOL 300 MG/ML 100ML BOTTLE IJ ONE (18:10)
[2023-10-30] MEDS: AMIODARONE HCL 200 MG TAB GT SCH (21:46)
[2023-10-31] VITALS (111 sets, daily range): BP systolic 72–165; BP diastolic 39–115; PULSE 86–114; RESP 11–39; TEMP 98.5–99.6; O2SAT 87–100
[2023-10-31 08:25] LABS: Basophils # (auto) 0 10 ^3/uL (0-0.2); Eosinophils # (auto) 0 10 ^3/uL (0-0.8); Eosinophils % (auto) 0.2 % (0.0-7.0); Hematocrit 33.8 % (41.0-53.0); Hemoglobin 11.4 g/dL (13.5-17.5); Lymphocytes # (auto) 0.2 10 ^3/uL (0.4-5.4); Lymphocytes % (auto) 2.3 % (10.0-50.0); Mean Corpuscular Hemoglobin 30.1 pg (28.0-32.0); Mean Corpuscular Hgb Conc. 33.8 g/dL (32.0-36.0); Mean Corpuscular Volume 89.2 fL (80.0-100.0); Monocytes # (auto) 0.2 10 ^3/uL (0-1.3); Monocytes % (auto) 2.6 % (0.0-12.0); Neutrophils # (auto) 6.9 10 ^3/uL (1.6-8.6); Neutrophils % (auto) 94.9 % (37.0-80.0); Nucleated Red Blood Cells % 0.4 %; Red Blood Cells 3.79 10^6/uL (4.5-5.90); Red Cell Distribution Width 14.5 % (11.8-14.3); White Blood Cell 7.3 10^3/uL (4.4-10.8)
[2023-10-31 08:52] LABS: Alanine Aminotransferase 273 U/L (7-40); Albumin 2.6 g/dL (3.2-4.8); Alkaline Phosphatase 122 U/L (46-116); Anion Gap 7 (5-15); Aspartate Aminotransferase 125 U/L (13-40); BUN/Creatinine Ratio 60.4 (10.0-20.0); Calcium 8.1 mg/dL (8.5-10.1); Carbon Dioxide 24 mmol/L (20-30); Chloride 109 mmol/L (98-107); Glucose 94 mg/dL (74-106); Magnesium 2.1 mg/dL (1.6-2.6); Potassium 3.6 mmol/L (3.5-5.1); Sodium 140 mmol/L (136-145)
[2023-10-31 08:53] LABS: Bilirubin, Total 1.1 mg/dL (0.2-1.0); Blood Urea Nitrogen 32 mg/dL (9-23); Total Protein 4.4 g/dL (5.7-8.2)
[2023-10-31 10:56] LABS: Base Excess 0.1 mmol/L (-2.0-2.0)
[2023-10-31] MEDS: PROPOFOL 100 ML IV SCH (20:45)
[2023-10-31] MEDS: fentaNYL Drip 2500mCg/250mlNS 250 ML IV SCH (21:21)
[2023-11-01] VITALS (116 sets, daily range): BP systolic 81–165; BP diastolic 49–96; PULSE 76–117; RESP 14–39; TEMP 98.3–99.5; O2SAT 90–98
[2023-11-01 08:27] LABS: Base Excess 2.2 mmol/L (-2.0-2.0)
[2023-11-01 10:55] LABS: Basophils # (auto) 0 10 ^3/uL (0-0.2); Basophils % (auto) 0.1 % (0.0-2.0); Eosinophils # (auto) 0 10 ^3/uL (0-0.8); Hematocrit 30.5 % (41.0-53.0); Hemoglobin 10.8 g/dL (13.5-17.5); Lymphocytes # (auto) 0.2 10 ^3/uL (0.4-5.4); Mean Corpuscular Hgb Conc. 35.3 g/dL (32.0-36.0); Monocytes # (auto) 0.3 10 ^3/uL (0-1.3); Neutrophils # (auto) 10.1 10 ^3/uL (1.6-8.6); Red Cell Distribution Width 14.4 % (11.8-14.3)
[2023-11-01 10:57] LABS: Mean Corpuscular Volume 87.7 fL (80.0-100.0); Monocytes % (auto) 2.7 % (0.0-12.0); Neutrophils % (auto) 95.2 % (37.0-80.0); Nucleated Red Blood Cells % 0.4 %; Red Blood Cells 3.47 10^6/uL (4.5-5.90); White Blood Cell 10.7 10^3/uL (4.4-10.8)
[2023-11-01 11:26] LABS: Alanine Aminotransferase 269 U/L (7-40); Albumin 2.6 g/dL (3.2-4.8); Alkaline Phosphatase 119 U/L (46-116); Anion Gap 6 (5-15); Aspartate Aminotransferase 104 U/L (13-40); BUN/Creatinine Ratio 65.2 (10.0-20.0); Blood Urea Nitrogen 30 mg/dL (9-23); Calcium 7.8 mg/dL (8.5-10.1); Carbon Dioxide 24 mmol/L (20-30); Chloride 108 mmol/L (98-107); Glucose 115 mg/dL (74-106); Potassium 3.6 mmol/L (3.5-5.1); Sodium 138 mmol/L (136-145)
[2023-11-01 11:27] LABS: Total Protein 4.2 g/dL (5.7-8.2)
[2023-11-01] MEDS: MIDODRINE HCL 10 MG TAB PO SCH (18:00)
[2023-11-02] VITALS (117 sets, daily range): BP systolic 71–171; BP diastolic 34–111; PULSE 83–125; RESP 15–38; TEMP 97.9–99; O2SAT 86–100
[2023-11-02] MEDS ORDERED: BACTRIM 5MG/KG Q8HR PER RX 0 ML IV SCH
[2023-11-02] MEDS: D5W 5% IV SCH ×2 (02:18→09:25)
[2023-11-02] MEDS: SULFAMETH-TRIMETH 800-160mg/10ml (80-16MG/ML) 10 ML VIAL IV ONE (02:18)
[2023-11-02] MEDS: SULFAMETH TRIMETH IV SCH ×2 (02:18→09:25)
[2023-11-02 04:17] LABS: Hematocrit 30.6 % (41.0-53.0); Hemoglobin 10.8 g/dL (13.5-17.5); Mean Corpuscular Hemoglobin 31.1 pg (28.0-32.0); Mean Corpuscular Hgb Conc. 35.3 g/dL (32.0-36.0); Red Blood Cells 3.48 10^6/uL (4.5-5.90); Red Cell Distribution Width 14.1 % (11.8-14.3); White Blood Cell 9.9 10^3/uL (4.4-10.8)
[2023-11-02 04:19] LABS: Basophils % (manual) 0 (0.0-2.0); Blast Cells 0; Eosinophils % (manual) 0 (0-7); Metamyelocytes % 0; Myelocytes % 0; Promyelocytes % 0; Reactive Lymphocytes 0
[2023-11-02 04:36] LABS: Alanine Aminotransferase 296 U/L (7-40); Alkaline Phosphatase 128 U/L (46-116); Anion Gap 8 (5-15); BUN/Creatinine Ratio 52.2 (10.0-20.0); Blood Urea Nitrogen 24 mg/dL (9-23); Calcium 7.9 mg/dL (8.5-10.1); Carbon Dioxide 23 mmol/L (20-30); Chloride 106 mmol/L (98-107); Glucose 176 mg/dL (74-106); Potassium 3.5 mmol/L (3.5-5.1); Sodium 137 mmol/L (136-145)
[2023-11-02 04:37] LABS: Albumin 2.7 g/dL (3.2-4.8)
[2023-11-02 04:38] LABS: Aspartate Aminotransferase 131 U/L (13-40)
[2023-11-02 04:39] LABS: Band Neutrophils % (manual) 6; Bilirubin, Total 1.1 mg/dL (0.2-1.0); Lymphocytes % (manual) 1 (10.0-50.0); Monocytes % (manual) 4 (0-12); Total Protein 4.3 g/dL (5.7-8.2)
[2023-11-02 04:40] LABS: Platelet Estimate Decreased
[2023-11-02 07:47] LABS: Base Excess 1.2 mmol/L (-2.0-2.0)
[2023-11-02] MEDS: POTASSIUM EFFERVESENT TAB 25 MEQ GT ONE (11:48)
[2023-11-02] MEDS: FUROSEMIDE 20 MG TAB PO SCH (14:00)
[2023-11-02] MEDS: FREE WATER GT SCH (14:00)
[2023-11-02] MEDS: NOREPINEPHRINE 8 MG/250ML KIT 250 ML IV SCH (14:30)
[2023-11-02] MEDS: ALBUMIN 25% 50 ML IV SCH (14:37)
[2023-11-02] MEDS: methylPREDNISolone SOD SUCC 40 MG/ML VL IV SCH (22:17)
[2023-11-03] VITALS (117 sets, daily range): BP systolic 70–197; BP diastolic 42–98; PULSE 80–125; RESP 9–40; TEMP 98.2–99.8; O2SAT 83–100
[2023-11-03 04:17] LABS: Red Blood Cells 3.16 10^6/uL (4.5-5.90)
[2023-11-03 04:20] LABS: Hematocrit 28.1 % (41.0-53.0); Mean Corpuscular Hemoglobin 31.8 pg (28.0-32.0); Mean Corpuscular Hgb Conc. 35.8 g/dL (32.0-36.0); Mean Corpuscular Volume 88.9 fL (80.0-100.0); Red Cell Distribution Width 14.5 % (11.8-14.3); White Blood Cell 10.8 10^3/uL (4.4-10.8)
[2023-11-03 04:25] LABS: Basophils % (manual) 0 (0.0-2.0); Blast Cells 0; Eosinophils % (manual) 0 (0-7); Metamyelocytes % 0; Myelocytes % 0; Promyelocytes % 0; Reactive Lymphocytes 0
[2023-11-03 04:29] LABS: Alanine Aminotransferase 294 U/L (7-40); Alkaline Phosphatase 112 U/L (46-116); Anion Gap 7 (5-15); Aspartate Aminotransferase 145 U/L (13-40); BUN/Creatinine Ratio 44.7 (10.0-20.0); Blood Urea Nitrogen 21 mg/dL (9-23); Calcium 8.2 mg/dL (8.7-10.4); Carbon Dioxide 22 mmol/L (20-30); Chloride 107 mmol/L (98-107); Glucose 118 mg/dL (74-106); Magnesium 1.9 mg/dL (1.6-2.6); Potassium 3.9 mmol/L (3.5-5.1); Sodium 136 mmol/L (136-145)
[2023-11-03 04:30] LABS: Bilirubin, Total 0.9 mg/dL (0.2-1.0); Total Protein 4.6 g/dL (5.7-8.2)
[2023-11-03 04:40] LABS: Band Neutrophils % (manual) 31; Lymphocytes % (manual) 2 (10.0-50.0); Monocytes % (manual) 4 (0-12); Platelet Estimate Decreased
[2023-11-03] MEDS: HYDROcodone-ACET 10/325MG TAB PO PRN (07:34)
[2023-11-03] MEDS: LORazepam 0.5 MG TAB PEG PRN (09:55)
[2023-11-03 13:23] LABS: Base Excess -4.1 mmol/L (-2.0-2.0)
[2023-11-03] MEDS: NOREPINEPHRINE 8 MG/250ML KIT 250 ML IV SCH (14:00)
[2023-11-03] MEDS: FUROSEMIDE 40 MG/4 ML VIAL IV SCH (18:11)
[2023-11-04] VITALS (112 sets, daily range): BP systolic 67–231; BP diastolic 33–177; PULSE 76–115; RESP 9–37; TEMP 96.8–100.6; O2SAT 84–96
[2023-11-04 03:48] LABS: Basophils # (auto) 0 10 ^3/uL (0-0.2); Basophils % (auto) 0.1 % (0.0-2.0); Eosinophils # (auto) 0 10 ^3/uL (0-0.8); Eosinophils % (auto) 0.2 % (0.0-7.0); Hematocrit 26.4 % (41.0-53.0); Hemoglobin 8.9 g/dL (13.5-17.5); Lymphocytes # (auto) 0.4 10 ^3/uL (0.4-5.4); Mean Corpuscular Hemoglobin 30.8 pg (28.0-32.0); Mean Corpuscular Hgb Conc. 33.9 g/dL (32.0-36.0); Monocytes # (auto) 0.4 10 ^3/uL (0-1.3); Monocytes % (auto) 2.7 % (0.0-12.0); Neutrophils # (auto) 12.7 10 ^3/uL (1.6-8.6); Nucleated Red Blood Cells % 0.1 %; Red Cell Distribution Width 14.6 % (11.8-14.3); White Blood Cell 13.6 10^3/uL (4.4-10.8)
[2023-11-04 04:01] LABS: Alanine Aminotransferase 290 U/L (7-40); Albumin 2.8 g/dL (3.2-4.8); Alkaline Phosphatase 106 U/L (46-116); Anion Gap 7 (5-15); Aspartate Aminotransferase 132 U/L (13-40); BUN/Creatinine Ratio 30.6 (10.0-20.0); Bilirubin, Total 0.6 mg/dL (0.2-1.0); Blood Urea Nitrogen 15 mg/dL (9-23); Calcium 7.7 mg/dL (8.7-10.4); Carbon Dioxide 20 mmol/L (20-30); Chloride 104 mmol/L (98-107); Glucose 159 mg/dL (74-106); Magnesium 1.8 mg/dL (1.6-2.6); Total Protein 4.3 g/dL (5.7-8.2)
[2023-11-04 04:13] LABS: Sodium 131 mmol/L (136-145)
[2023-11-04 09:02] LABS: Base Excess -2.7 mmol/L (-2.0-2.0)
[2023-11-04] MEDS ORDERED: GLYCOPYRROLATE 0.2 MG/ML 1ML VIAL ONE (09:27)
[2023-11-04] MEDS ORDERED: EPINEPHrine HCL 1 MG/1 ML AMP ONE (09:27)
[2023-11-04] MEDS ORDERED: MIDAZOLAM HCL 5 MG/ML-1ML VIAL ONE (09:27)
[2023-11-04] MEDS ORDERED: LIDOCAINE 2%HCL (LOCAL ANESTH.) INJ 20ML MDV ONE (09:27)
[2023-11-04] MEDS ORDERED: SODIUM CHLORIDE LOCK 0 ML ONE (09:27)
[2023-11-04] MEDS ORDERED: LIDOCAINE 2% JELLY 11ml (GLYDO) ONE (09:27)
[2023-11-04] MEDS ORDERED: diphenhdrAMINE HCL 50 MG/1 ML VL ONE (09:28)
[2023-11-04] MEDS ORDERED: fentaNYL CITRATE 100 MCG/2 ML VL ONE (09:28)
[2023-11-04] MEDS: POTASSIUM EFFERVESENT TAB 25 MEQ GT SCH (10:14)
[2023-11-04] MEDS: FUROSEMIDE 40 MG/4 ML VIAL IV ONE (10:25)
[2023-11-04] MEDS: MAGNESIUM SULFATE 1GM/100ML 100 ML IV ONE (10:26)
[2023-11-04] MEDS: FUROSEMIDE INJECTION 100 MG in D5W 5% 100 ML IV SCH (10:48)
[2023-11-04] MEDS: GASTROGRAFIN 30 ML SOL ONE (12:34)
[2023-11-05] VITALS (112 sets, daily range): BP systolic 63–164; BP diastolic 34–86; PULSE 77–105; RESP 14–22; TEMP 96.6–100; O2SAT 82–99
[2023-11-05] MEDS ORDERED: VANCOMYCIN PER PHARMACY 0 MG IV SCH
[2023-11-05] MEDS: PIPERACILLIN-TAZOB 3.375GM 100 ML IV SCH (00:13)
[2023-11-05] MEDS: VANCOMYCIN 1GM/200ML 200 ML IV ONE (00:15)
[2023-11-05 04:36] LABS: Eosinophils # (auto) 0 10 ^3/uL (0-0.8); Eosinophils % (auto) 0.1 % (0.0-7.0); Hemoglobin 9.5 g/dL (13.5-17.5); Lymphocytes # (auto) 0.5 10 ^3/uL (0.4-5.4); Mean Corpuscular Hemoglobin 30.9 pg (28.0-32.0); Monocytes # (auto) 0.4 10 ^3/uL (0-1.3)
[2023-11-05 04:38] LABS: Basophils # (auto) 0 10 ^3/uL (0-0.2); Basophils % (auto) 0.1 % (0.0-2.0); Hematocrit 27.7 % (41.0-53.0); Lymphocytes % (auto) 3.4 % (10.0-50.0); Mean Corpuscular Hgb Conc. 34.3 g/dL (32.0-36.0); Mean Corpuscular Volume 90.1 fL (80.0-100.0); Monocytes % (auto) 2.7 % (0.0-12.0); Neutrophils # (auto) 14.7 10 ^3/uL (1.6-8.6); Neutrophils % (auto) 93.7 % (37.0-80.0); Red Blood Cells 3.08 10^6/uL (4.5-5.90); Red Cell Distribution Width 14.5 % (11.8-14.3); White Blood Cell 15.6 10^3/uL (4.4-10.8)
[2023-11-05 04:44] LABS: Chloride 100 mmol/L (98-107); Potassium 4.5 mmol/L (3.5-5.1)
[2023-11-05 04:45] LABS: Anion Gap 6 (5-15); Calcium 7.6 mg/dL (8.7-10.4); Carbon Dioxide 20 mmol/L (20-30)
[2023-11-05 04:50] LABS: BUN/Creatinine Ratio 31.2 (10.0-20.0); Blood Urea Nitrogen 24 mg/dL (9-23); Glucose 201 mg/dL (74-106)
[2023-11-05 04:57] LABS: Sodium 126 mmol/L (136-145)
[2023-11-05] MEDS: VASOPRESSIN 20 UNIT/ML ONE (09:50)
[2023-11-05] MEDS: VASOPRESSIN 20 UNITS in SODIUM CHL 0.9% 99 ML IV SCH (10:09)
[2023-11-05 12:29] LABS: Base Excess -6.5 mmol/L (-2.0-2.0)
[2023-11-05] MEDS: VANCOMYCIN 1GM/200ML 200 ML IV SCH (13:28)
[2023-11-05] MEDS ORDERED: CLINIMIX PER PHARMACY 0 ML IV SCH (14:00)
[2023-11-05] MEDS: NOREPINEPHRINE BITARTRATE 32 MG in SODIUM CHL 0.9% 218 ML IV SCH (17:52)
[2023-11-05] MEDS: EPINEPHrine HCL 250 ML IV SCH (17:58)
[2023-11-05] MEDS: AMINO ACID INFUSION IN D10W 1,000 ML IV SCH (21:25)
[2023-11-06] VITALS (110 sets, daily range): BP systolic 83–184; BP diastolic 42–164; PULSE 80–101; RESP 11–24; TEMP 98.4–99.3; O2SAT 82–100
[2023-11-06] MEDS: InsuLIN REG 1unit/0.01ml Soln (100units/ml) SC SCH (00:23)
[2023-11-06] MEDS: ACCU-CHEK COMFORT CURVE STRIP VI SCH (00:24)
[2023-11-06 04:27] LABS: Alanine Aminotransferase 269 U/L (7-40); Albumin 2.6 g/dL (3.2-4.8); Alkaline Phosphatase 112 U/L (46-116); Anion Gap 10 (5-15); Aspartate Aminotransferase 91 U/L (13-40); BUN/Creatinine Ratio 33.3 (10.0-20.0); Blood Urea Nitrogen 28 mg/dL (9-23); Calcium 7.4 mg/dL (8.7-10.4); Carbon Dioxide 19 mmol/L (20-30); Chloride 95 mmol/L (98-107); Glucose 233 mg/dL (74-106); Potassium 4.3 mmol/L (3.5-5.1); Sodium 124 mmol/L (136-145)
[2023-11-06 04:28] LABS: Bilirubin, Total 0.4 mg/dL (0.2-1.0); Phosphorus 4.2 mg/dL (2.4-5.1); Total Protein 4.1 g/dL (5.7-8.2)
[2023-11-06 11:09] LABS: Base Excess -9.6 mmol/L (-2.0-2.0)
[2023-11-07] VITALS (105 sets, daily range): BP systolic 39–205; BP diastolic 19–100; PULSE 93–132; RESP 8–30; TEMP 98.8–100; O2SAT 76–100
[2023-11-07 04:57] LABS: Alanine Aminotransferase 283 U/L (7-40); Albumin 2.7 g/dL (3.2-4.8); Alkaline Phosphatase 124 U/L (46-116); Anion Gap 11 (5-15); Aspartate Aminotransferase 156 U/L (13-40); Bilirubin, Total 0.4 mg/dL (0.2-1.0); Calcium 7.6 mg/dL (8.5-10.1); Carbon Dioxide 19 mmol/L (20-30); Chloride 92 mmol/L (98-107); Magnesium 1.8 mg/dL (1.6-2.6); Phosphorus 4.3 mg/dL (2.4-5.1); Potassium 4.5 mmol/L (3.5-5.1); Sodium 122 mmol/L (136-145)
[2023-11-07 04:58] LABS: Total Protein 4.3 g/dL (5.7-8.2)
[2023-11-07 05:00] LABS: Blood Urea Nitrogen 40 mg/dL (9-23); Glucose 113 mg/dL (74-106)
[2023-11-07 07:43] LABS: Base Excess -10.1 mmol/L (-2.0-2.0)
[2023-11-07] MEDS: DOPamine 1600MCG/ML D5W 250 ML IV SCH (08:23)
[2023-11-07] MEDS: PHENYLEPHRINE IV 250 ML IV SCH (14:15)
[2023-11-07] MEDS: PHENYLEPHRINE IV 250 ML IV ONE (14:19)
[2023-11-07] MEDS: SODIUM CHL 3% IV ONE (18:10)
[2023-11-07] MEDS: PHENYLEPHRINE HCL 10 MG/ML VL ONE (21:24)
[2023-11-07] MEDS: PROPOFOL 100 ML IV SCH (22:15)
[2023-11-08] VITALS (56 sets, daily range): BP systolic 80–128; BP diastolic 43–79; PULSE 55–112; RESP 18–26; TEMP 97–98.8; O2SAT 70–100
[2023-11-08] MEDS: PHENYLEPHRINE INJ 80 MG in SODIUM CHL 0.9% 242 ML IV SCH (01:13)
[2023-11-08] MEDS: PHENYLEPHRINE HCL 10 MG/ML VL ONE (01:16)
[2023-11-08] MEDS: EPINEPHrine HCL INJECTION 16 MG in D5W 5% 234 ML IV SCH (03:34)
[2023-11-08] MEDS: EPINEPHrine HCL 1 MG/1 ML AMP ONE ×2 (03:43)
[2023-11-08 04:48] LABS: Alanine Aminotransferase 286 U/L (7-40); Alkaline Phosphatase 123 U/L (46-116); Anion Gap 13 (5-15); BUN/Creatinine Ratio 41.6 (10.0-20.0); Blood Urea Nitrogen 47 mg/dL (9-23); Calcium 7.7 mg/dL (8.7-10.4); Carbon Dioxide 15 mmol/L (20-30); Chloride 95 mmol/L (98-107); Glucose 98 mg/dL (74-106); Magnesium 1.9 mg/dL (1.6-2.6); Potassium 5.1 mmol/L (3.5-5.1); Sodium 123 mmol/L (136-145)
[2023-11-08 04:49] LABS: Albumin 2.5 g/dL (3.2-4.8); Aspartate Aminotransferase 194 U/L (13-40)
[2023-11-08 04:50] LABS: Bilirubin, Total 0.6 mg/dL (0.2-1.0); Phosphorus 5.6 mg/dL (2.4-5.1); Total Protein 4.3 g/dL (5.7-8.2)
[2023-11-08 05:58] LABS: Mean Corpuscular Hemoglobin 30.7 pg (28.0-32.0)
[2023-11-08 06:03] LABS: Hematocrit 23.7 % (41.0-53.0); Hemoglobin 8.1 g/dL (13.5-17.5); Mean Corpuscular Hgb Conc. 34.3 g/dL (32.0-36.0); Mean Corpuscular Volume 89.4 fL (80.0-100.0); Red Blood Cells 2.65 10^6/uL (4.5-5.90); Red Cell Distribution Width 14.9 % (11.8-14.3); White Blood Cell 13.2 10^3/uL (4.4-10.8)
[2023-11-08 06:23] LABS: Basophils % (manual) 0 (0.0-2.0); Blast Cells 0; Eosinophils % (manual) 0 (0-7); Myelocytes % 0; Promyelocytes % 0; Reactive Lymphocytes 0
[2023-11-08 06:45] LABS: Band Neutrophils % (manual) 12; Lymphocytes % (manual) 4 (10.0-50.0); Metamyelocytes % 1; Monocytes % (manual) 2 (0-12)
[2023-11-08 06:46] LABS: Large Platelets FEW; Ovalocytes FEW
[2023-11-08 06:47] LABS: Anisocytosis Slight; Platelet Estimate Markedly Decreased
[2023-11-08] MEDS ORDERED: D5W 5% 1,000 ML IV SCH (10:30)
[2023-11-08] MEDS: DEXTROSE (50%) 50ML SYRG IV SCH (12:13)
== END 2023-11-08 12:09 | DRG 4 ==
LOC: ER 02:02 → EDBD 02:02 → TELE 05:55 → DOU IN ICU 09:34 → ICU WEST 10-01 16:39
PROVIDERS: ADMIT Nurse Practitioner Family; ATTEND Nurse Practitioner
PROC: 02HV33Z Insertion of Infusion Device into Superior Vena Cava, Percutaneous Approach (ICD-10-PCS; 2023-10-01)
PROC: 5A1955Z Respiratory Ventilation, Greater than 96 Consecutive Hours (ICD-10-PCS; 2023-10-01)
PROC: 0BH17EZ Insertion of Endotracheal Airway into Trachea, Via Natural or Artificial Opening (ICD-10-PCS; 2023-10-01)
PROC: B548ZZA Ultrasonography of Superior Vena Cava, Guidance (ICD-10-PCS; 2023-10-01)
PROC: 0BJ08ZZ Inspection of Tracheobronchial Tree, Via Natural or Artificial Opening Endoscopic (ICD-10-PCS; 2023-10-03)
PROC: 0B9B8ZZ Drainage of Left Lower Lobe Bronchus, Via Natural or Artificial Opening Endoscopic (ICD-10-PCS; 2023-10-11)
PROC: 0B968ZZ Drainage of Right Lower Lobe Bronchus, Via Natural or Artificial Opening Endoscopic (ICD-10-PCS; 2023-10-11)
PROC: 0B9B8ZZ Drainage of Left Lower Lobe Bronchus, Via Natural or Artificial Opening Endoscopic (ICD-10-PCS; 2023-10-13)
PROC: 0B968ZZ Drainage of Right Lower Lobe Bronchus, Via Natural or Artificial Opening Endoscopic (ICD-10-PCS; 2023-10-13)
PROC: 0B113F4 Bypass Trachea to Cutaneous with Tracheostomy Device, Percutaneous Approach (ICD-10-PCS; 2023-10-17)
PROC: 0DH63UZ Insertion of Feeding Device into Stomach, Percutaneous Approach (ICD-10-PCS; principal; 2023-10-19 11:00)
PROC: 4A133B1 Monitoring of Arterial Pressure, Peripheral, Percutaneous Approach (ICD-10-PCS; 2023-10-24)
PROC: 0B9H8ZZ Drainage of Lung Lingula, Via Natural or Artificial Opening Endoscopic (ICD-10-PCS; 2023-10-24)
PROC: 0B988ZZ Drainage of Left Upper Lobe Bronchus, Via Natural or Artificial Opening Endoscopic (ICD-10-PCS; 2023-10-24)
PROC: 0B9H8ZZ Drainage of Lung Lingula, Via Natural or Artificial Opening Endoscopic (ICD-10-PCS; 2023-10-29)
PROC: 0B988ZZ Drainage of Left Upper Lobe Bronchus, Via Natural or Artificial Opening Endoscopic (ICD-10-PCS; 2023-10-29)
PROC: 0B978ZZ Drainage of Left Main Bronchus, Via Natural or Artificial Opening Endoscopic (ICD-10-PCS; 2023-11-01)
PROC: 0B938ZZ Drainage of Right Main Bronchus, Via Natural or Artificial Opening Endoscopic (ICD-10-PCS; 2023-11-01)
PROC: 0B9B8ZZ Drainage of Left Lower Lobe Bronchus, Via Natural or Artificial Opening Endoscopic (ICD-10-PCS; 2023-11-04)
PROC: 0B968ZZ Drainage of Right Lower Lobe Bronchus, Via Natural or Artificial Opening Endoscopic (ICD-10-PCS; 2023-11-04)
PROC: 5A12012 Performance of Cardiac Output, Single, Manual (ICD-10-PCS; 2023-11-08)
DX: A41.9 Sepsis, unspecified organism (principal); J96.01 Acute respiratory failure with hypoxia; J15.69 Pneumonia due to other Gram-negative bacteria; J15.9 Unspecified bacterial pneumonia; J44.0 Chronic obstructive pulmonary disease with (acute) lower respiratory infection; K94.23 Gastrostomy malfunction; E87.1 Hypo-osmolality and hyponatremia; E46 Unspecified protein-calorie malnutrition; Z99.11 Dependence on respirator [ventilator] status; I50.32 Chronic diastolic (congestive) heart failure; E78.5 Hyperlipidemia, unspecified; I11.0 Hypertensive heart disease with heart failure; K59.00 Constipation, unspecified; I46.9 Cardiac arrest, cause unspecified; I48.0 Paroxysmal atrial fibrillation; Z20.822 Contact with and (suspected) exposure to COVID-19; J84.10 Pulmonary fibrosis, unspecified; K44.9 Diaphragmatic hernia without obstruction or gangrene; E16.2 Hypoglycemia, unspecified; Z87.891 Personal history of nicotine dependence; Z79.2 Long term (current) use of antibiotics; Z79.899 Other long term (current) drug therapy; Z79.01 Long term (current) use of anticoagulants; Z68.27 Body mass index [BMI] 27.0-27.9, adult; Z87.01 Personal history of pneumonia (recurrent)
CPT/HCPCS: 31622; 31646; 36415; 36600; 43246; 71045; 71260; 71275; 74018; 74021; 74177; 80048; 80053; 80202; 81001; 82270; 82805; 82962; 83605; 83735; 83880; 84100; 84132; 84443; 84484; 85007; 85025; 85027; 85379; 85610; 85730; 86606; 86635; 86703; 86850; 86900; 86901; 87040; 87070; 87077; 87081; 87086; 87186; 87205; 87426; 87556; 87804; 92950; 93005; 93306; 93970; 94003; 94640; 94660; 94667; 94668; 96365; 96375; A4605; C9113; G0378; J0171; J0690; J0692; J1450; J1815; J1956; J2001; J2185; J2248; J2250; J2543; J2704; J3430; J3480; J3490; J7060; P9047